=== PATIENT | male | born 1975 | race Caucasian/White ===

== ENCOUNTER 2023-07-11 19:45 | Inpatient (IN) | payer OTHER, SELFPAY ==
[2023-07-11 17:30] VITALS: BP 167/107
--- NOTE | 2023-07-11 17:35 | EDRN ---
Pt will not answer triage questions or past medical history, pt will not sit still on stretcher.
[2023-07-11] MEDS: SUBLIMAZE 50 MCG IV (17:42)
--- NOTE | 2023-07-11 18:03 | ED.GENMED ---
History of Present Illness
General
Chief Complaint: Headache
Source: patient and ambulance crew
Exam Limitations: clinical condition
Time Seen by Provider: 07/11/23 17:28
Travel History
Have you had any contact with someone who has COVID-19?: No
Do you have any symptoms of coronavirus? Fever > 100 degrees, chills, cough, shortness of breath, sore throat, loss of taste or smell, muscle aches, or headache?: No
History of Present Illness
History of Present Illness:
47-year-old male started with mild diffuse headache this morning. Took some Advil for discomfort. Headache became suddenly much worse late this afternoon. To the point of calling medics for evaluation. Medics stated patient was alert but very
agitated. No history of headaches. No trauma. No fever photophobia or other complaints. No neurologic issues noted by the medics.
Past History
Past History
ED Past Medical History: None
Review of Systems
Review of Systems
All Other Systems: Not applicable
Constitutional: Denies fever or chills
Skin: Denies rash
Neurological: Denies dizzy, weakness or numbness
Phy Exam
Physical Exam
Physical Exam:
GENERAL: Agitated. Moaning at times complaining of diffuse headache. However cannot redirect and is fully alert oriented and answering questions.
EYE: Orbits normal.
NECK: Supple, no significant adenopathy. Nontender
ENT: Pharynx without erythema
CARDIAC: Regular rate and rhythm without any obvious murmurs.
LUNGS: Clear breath sounds,normal
ABDOMEN: Soft, without focal tenderness or distention
NEUROLOGICAL: Alert and oriented , grossly non-focal
SKIN: Warm, mildly diaphoretic. No petechia or purpura
MUSCULOSKELETAL: No edema,no deformity.Good color
PSYCH: Normal and appropriate interaction.
Course
Orders/Labs/Results
Orders:
Orders
07/11/23 17:28
CT Head W/o Iv Contrast Urgent
Comment:
Reason For Exam: severe loving
Cardiac Monitoring- Treatment ONCE
IV Insert/Care/Rem.- Treatment PRN
Pulse Ox/cont/shift [RESP] Stat
Quantity: 1
07/11/23 17:29
Electrocardiogram (*1) Stat
Reason for Study: Other
Other Reason for Exam: neuro symptoms
EKG- Treatment ONCE
07/11/23 17:41
CT Head & Neck Angio W/wo IV Urgent
Comment:
Reason For Exam: severe loving
Fentanyl Citrate/Pf [Sublimaze] 100 mcg .ROUTE .STK-MED ONE
07/11/23 17:42
Fentanyl Citrate/Pf [Sublimaze] 50 mcg IV NOW STA
07/11/23 17:59
Complete Blood Count/With Diff Urgent
Comprehensive Metabolic Panel Urgent
PTT Urgent
Prothrombin Time Urgent
TSH Reflex To Free T4 Urgent
Comment: ADD ON
07/11/23 18:03
Acetaminophen 1000MG/100Ml [Ofirmev] 1,000 mg in 100 ml IV ONCE
Acetaminophen IV Indication:: ED Narcotic Naive Pt-ONCE
07/11/23 18:04
Diphenhydramine [Benadryl] 25 mg IV NOW STA
Prochlorperazine [Compazine] 10 mg IV NOW STA
07/11/23 18:06
Diphenhydramine [Benadryl] 50 mg .ROUTE .STK-MED ONE
Prochlorperazine [Compazine] 10 mg .ROUTE .STK-MED ONE
07/11/23 18:07
Diphenhydramine [Benadryl] 25 mg IV NOW STA
07/11/23 18:08
Prochlorperazine [Compazine] 10 mg IV NOW STA
07/11/23 18:24
COVID-19 Antigen Urgent
Source: Nasal Swab
Influenza A+B Rapid Molecular Urgent
ALOK Source: Nasal Swab
Specimen Description:
07/11/23 18:28
Add On- LAB Urgent
Tests Added?: tsh reflex t4
Ketorolac [Toradol] 15 mg IV NOW STA
07/11/23 19:01
Add On- LAB Urgent
Tests Added?: procalcitonin
07/11/23 19:02
NEUROLOGY CONSULT Routine
Consulting Provider: Manan Nj
Was physician already notified: Yes
Reason for consult: headache leukocytosis
07/11/23 19:04
Admit/Transfer Patient As Directed
Co-Sign Provider:
Level of Care: Inpatient admission
Assign to:: Medical/Surgical
Physician / Group: richard falcon
Diagnosis: intracatable headache , leukocytosis
Reason for Hospitalization: intracatable headache , leukocytosis
Expected length of stay greater than two midnights?: Yes
ELOS- Estimated Length of Stay in days: 3
I certify the patient meets the requirements for IP care: Yes
Code Status As Directed
Resuscitation Status: Full Code
07/11/23 19:07
CefTRIAXone [Rocephin] 2,000 mg IV NOW STA
07/11/23 19:10
Add On- LAB Urgent
Tests Added?: procalcitonin
07/11/23 19:55
Urine Drug Abuse Screen Routine
Date Specimen was Collected: 07/11/23
Time Specimen was Collected: 19:35
Blood Culture Q30M
ALOK Source: Blood/Venous
Specimen Description:
07/11/23 20:00
CefTRIAXone [Rocephin] 1,000 mg IV Q24H
Sterile Water [Sterile Water For Injection] 10 ml IV Q24H
07/11/23 20:05
Blood Culture Q30M
ALOK Source: Blood/Venous
Specimen Description:
Abnormal Lab Results
07/11/23
17:59
WBC 21.3 H 10^3/uL
(4.8-10.8)
MCH 31.9 H pg
(27.0-31.0)
Abs Immat Gran (auto) 0.1 H 10^3/uL
(0-0.05)
Absolute Neuts (auto) 18.7 H 10^3/uL
(1.4-6.5)
Absolute Lymphs (auto) 0.8 L 10^3/uL
(1.2-3.4)
Absolute Monos (auto) 1.5 H 10^3/uL
(0.1-0.6)
Immature Gran % 0.7 H %
(0-0.5)
Neutrophils % 87.9 H %
(42.2-75.2)
Lymphocytes % 3.6 L %
(20.5-51.1)
Sodium 130 L mmol/L
(135-145)
Carbon Dioxide 21 L mmol/L
(22-30)
Glucose 135 H mg/dl
(70-99)
ALT 70 H U/L
(0-50)
07/11/23 17:59
07/11/23 17:59
Vital Signs
Initial and Last Documented VS:
Initial Vital Signs
Temp Pulse Resp BP Pulse Ox
98.9 F 115 30 167/107 96
07/11/23 17:30 07/11/23 17:30 07/11/23 17:30 07/11/23 17:30 07/11/23 17:30
Last Documented Vital Signs
Temp Pulse Resp BP Pulse Ox
98.0 F 105 24 131/94 94
07/11/23 20:13 07/11/23 19:00 07/11/23 19:15 07/11/23 19:00 07/11/23 18:21
*Radiology
Radiology exam reviewed: radiology read reviewed (CT head and CT angiography negative)
*Pulse Oximetry
Patient hypoxic: no
*EKG
Interpreted by ED Provider?: Yes
Interpretation: abnormal
Comparison EKG: no comparison EKG present
Heart Rate: 102
Rate: tachycardiac
Rhythm: sinus
Norris: normal axis
Interval: normal interval
QRS Pattern: normal QRS
Ischemia: non-specific ST changes
*Insole Stiffener Interpretation
Rate: normal
Interpretation: normal
Heart Rate: 99
Rhythm: sinus
*Critical Care Note
Total Time (30-74mins, 75-104mins- exclusive of procedures): 45
Update Note
Update Note:
I was in CAT scan for the initial CT which looks negative to me. I called radiology. They confirm no acute bleed. CT angiography was ordered immediately. Awaiting for this reading. Patient continues to be agitated moaning complaining of pain
but when redirected will answer questions appropriately.
1820... Patient being rechecked multiple times. Still complaining of severe headache although he does appear slightly more comfortable. Mildly clammy. Neck is supple. Patient still moaning at times but will answer questions fully and
appropriately. High white count but likely reactive. Awaiting CT angiography.
1900.... Patient appears more comfortable but still complaining of severe headache. Neck is supple. Only other test to contemplate this evening would be a lumbar puncture. Because of patient's adipose tissue and size it would be very difficult
blind LP. Discussed with hospitalist and with neurology. Procalcitonin ordered. Will cover with Rocephin Vanco and acyclovir. To consider LP in the morning if still indicated. At this time, clinically have a relatively low suspicion given
supple neck and fully awake alert and oriented when redirected. However cannot ignore 21,000 white count with severe headache
ED Attending Note
-
Portions of this chart may have been created with voice recognition software.� Occasional wrong word or��sound alike� substitutions may have occurred due to the inherent limitations of voice recognition software.
Discharge Plan
Departure
Patient Disposition: Admit
Date of Disposition: 07/11/23
Time of Disposition: 19:12
Presentation/result/management discussed w/ accepting MD/DO: Hospitalist
Discharge Problem:
Acute severe headache
Interventions
Interventions:
*Risk Screen - Suicide Last Done: 07/11/23 18:19
*General Assessment Last Done: 07/11/23 18:19
*Neglect/Abuse Screening Last Done: 07/11/23 18:19
ED- Fall Risk Assessment Last Done: 07/11/23 18:21
*ED COVID-19 Vaccine History Last Done: 07/11/23 18:19
*Nursing Disposition Last Done: 07/11/23 20:41
ED- Neurological Assessment Last Done: 07/11/23 18:21
Discharge Date and Time
Discharge Date/Time: 07/11/23 20:42
--- NOTE | 2023-07-11 18:06 | EDRN ---
Pt will not sit still for EKG. Dr. Luong aware.
[2023-07-11 18:07] LABS: % Basophils 0.3 % (0-2); % Eosinophils 0.3 % (0-6); % Immature Granulocytes 0.7 % (0-0.5); % Lymphocytes 3.6 % (20.5-51.1); % Monocytes 7.2 % (1.7-9.3); % Neutrophils 87.9 % (42.2-75.2); Absolute Basophils 0.1 10^3/uL (0-0.2); Absolute Eosinophils 0.1 10^3/uL (0-0.7); Absolute Immature Granulocytes 0.1 10^3/uL (0-0.05); Absolute Lymphocytes 0.8 10^3/uL (1.2-3.4); Absolute Monocytes 1.5 10^3/uL (0.1-0.6); Absolute Neutrophils 18.7 10^3/uL (1.4-6.5); Hematocrit 43.3 % (39.0-52.0); Hemoglobin 15.5 g/dL (13.0-18.0); Mean Corp Hgb Conc. 35.8 g/dL (33.0-37.0); Mean Corpuscular Hgb 31.9 pg (27.0-31.0); Mean Corpuscular Volume 89.1 fL (80.0-94.0); Mean Platelet Volume 8.7 fL (7.4-10.4); Nucleated Red Blood Cells % 0 % (-); Platelet Count 264 10^3/uL (130-400); Red Blood Cell Count 4.86 10^6/uL (4.70-6.10); Red Cell Dist. Width 14.1 % (11.5-14.5); White Blood Cell Count 21.3 10^3/uL (4.8-10.8)
[2023-07-11] MEDS: BENADRYL 25 MG IV ×2 (18:07→22:45)
--- NOTE | 2023-07-11 18:10 | EDRN ---
Pt stating his name is Prieto MONI Hurtado 1975 on arrival to hospital and when asked him name and . Upon further evaluation of insurance cards and license, pts name is Elias MONI Hurtado still 1975. Registration notified.
[2023-07-11] MEDS: COMPAZINE 10 MG IV (18:11)
[2023-07-11] MEDS: OFIRMEV 100 IV (18:15)
--- NOTE | 2023-07-11 18:15 | EDRN ---
Pt continues to try and get OOB, pt was informed he cannot get OOB due to all the medications he has been given for safety. This RN left room and pt climbed over stretcher side rails. Pt was informed again he cannot get OOB and must use the urinal
with assistance on side of stretcher.
[2023-07-11 18:17] LABS: INR 1.13; PT 14.3 Sec (11.4-14.6)
[2023-07-11 18:18] VITALS: BMI 40.7
[2023-07-11 18:18] LABS: APTT 24.6 Sec (23.4-35.0)
[2023-07-11 18:19] LABS: Blood Urea Nitrogen 12 mg/dl (9-20); Estimated Creatinine Clearance > 125 ml/min; Glucose 135 mg/dl (70-99)
[2023-07-11 18:20] LABS: ALT (SGPT) 70 U/L (0-50); AST (SGOT) 44 U/L (17-59); Albumin 4.1 g/dl (3.5-5.0); Alkaline Phosphatase 60 U/L (38-126); Calcium 9.3 mg/dl (8.4-10.2); Carbon Dioxide 21 mmol/L (22-30); Chloride 100 mmol/L (98-107); Potassium 3.8 mmol/L (3.5-5.1); Sodium 130 mmol/L (135-145); Total Protein 7.2 g/dl (6.3-8.2); eGFR > 60.00
[2023-07-11 18:27] VITALS: BP 104/90
[2023-07-11] MEDS: TORADOL 15 MG IV (18:33)
--- NOTE | 2023-07-11 18:50 | EDRN ---
Pt attempting to climb OOB again, pt understands use of call kessler but states 'I don't want to use it'. Pt assisted to edge of stretcher to use urinal. Pt placed back on stretcher. Call kessler in reach, curtain open so RN can see pt for safety.
[2023-07-11 18:52] LABS: COVID-19 Antigen Negative (Negative)
[2023-07-11 19:00] VITALS: BP 131/94
[2023-07-11 19:14] LABS: TSH Reflex To Free T4 4.16 uIU/ml (0.47-4.68)
--- NOTE | 2023-07-11 19:14 | HPS.HSE ---
Addendum entered and electronically signed by Aly Gallagher MD 07/11/23 23:57:
NEG UDS
07/11/23
19:55
Procalcitonin 1.88 H
-cont IVS Acyclovir, Vancomycin and CFTZ
Addendum entered and electronically signed by Aly Gallagher MD 07/11/23 19:23:
NEG Covid
NEG Flu A & B
Original Note:
Family Physician
-
Family Physician:
Chief Complaint
-
ZABALA
History of Present Illness
47M pw abrupt onset of severe ZABALA associated with vomiting twice, afebrile. No prior HX migraine. Received IV Fentanyl 100 by EMS but not relief. He is still writhing with pain at ER. SAdditinal Fentanyl 50 mcg by ER. Additinally IV Toradol 15 mg,
Compazine and IV 25 mg of Benadryl. [place] nauseous
Medical History
Past Medical History
Past Medical History: Reports None
Past Surgical History: Reports Other
Social History
Tobacco: Non-smoker
Alcohol: None
Family History
Family History: Not pertinent
Allergies / Home Medications
Allergies reflects when Allergies were last updated in [employer].
Home Medications with original date entered in [employer]
Allergy/Medication List:
Allergies
Allergy/AdvReac Type Severity Reaction Status Date / Time
Sulfa (Sulfonamide Allergy Unknown Verified 07/11/23 17:40
Antibiotics)
If medication reconciliation has not been performed, why?: Other (not on any meds )
Review of Systems
-
Constitutional: Denies Fever
EENT: Reports No Symptoms
Respiratory: Reports No Symptoms
Cardiac: Reports No Symptoms
Abdomen/GI: Reports No Symptoms
: Reports No Symptoms
Musculoskeletal: Reports No Symptoms
Skin: Reports No Symptoms
Neurological: Reports See HPI
Endocrine: Reports No Symptoms
Hematologic/Lymphatic: Reports No Symptoms
Psych: Reports No Symptoms
Physical Exam
Vital Signs
Vital Signs
Temp Pulse Resp BP Pulse Ox
98.9 F 109 23 104/90 94
07/11/23 17:30 07/11/23 18:49 07/11/23 18:49 07/11/23 18:27 07/11/23 18:21
Physical Exam
General: Other (see below )
Laboratory Results
-
07/11/23 17:59
07/11/23 17:59
Laboratory Results
PT 14.3 Sec (11.4-14.6) 07/11/23 17:59
INR 1.13 07/11/23 17:59
APTT 24.6 Sec (23.4-35.0) 07/11/23 17:59
Total Bilirubin 1.0 mg/dl (0.2-1.3) 07/11/23 17:59
AST 44 U/L (17-59) 07/11/23 17:59
ALT 70 U/L (0-50) H 07/11/23 17:59
Alkaline Phosphatase 60 U/L (38-126) 07/11/23 17:59
Data Reviewed
-
CT Scan: Report Reviewed by me
Lab Data: Labs Reviewed by me
Impression/Plan
-
Reviewed VS: afebrile BP 165/105--> 1055/[address] ST 100s
BMI 40 class III - morbid obesity
PE
Gen: Class III obesity
HEENT: anicteric
Neck: supple no meningism
Lungs: symmetric AE
Cor: RRR S1 S21
Abdomen: Morbidly obese abdomen
DISCHARGE RN: Alert, non focal
MS: not edematous
Psych: seems more comfortable , looking at his cell phone
Data
WCC 21s
nl Hgb
Na 130
CO2 21
BG 135
ALT 70
Pending TSH
HCT: No evidence of acute intracranial abnormality.
H & N CTA
- Mild noncalcified plaque involving the proximal left ICA, which results in approximately 25% diameter reduction.
- Normal CT angiographic appearance of the anterior cerebral and middle cerebral arteries bilaterally.
-Tortuosity of the superior vertebral arteries bilaterally with no significant narrowing. Tortuosity of the proximal basilar artery with no significant narrowing.
-There is no CT angiographic evidence for arterial dissection.
-Enlarged left lobe of the thyroid gland, asymmetric compared to the right. If not previously evaluated, further evaluation with thyroid ultrasound is recommended.
-There is no CT angiographic evidence for intracranial aneurysm.
-Percent stenosis is calculated using NASCET criteria.
No prior hospitalist admission:
ASSESSMENT & PLAN
Abrupt onset of severe ZABALA
+ Nausea and Vomiting twice
+ Leucocytosis - infective vs leukemoid reaction to stress
NEG HCT, NEG CTA H & N
DDX; Viral encephalitis, aseptic meninigitis, atypical migraine
- ER attd discussed case with Neuro
- check UDS
- BCx sent
- Empiric IV acyclovir, DISCHARGE RN dose IV CFTX , IV vancomycin
- IV Toradol 30 q6h PRN + PRN IV Benadryl + IV Compazine PRN
- Trend WCC
- IR consult in AM for IR LP
- Neuro consult
DVT Px: SCD
Code: Full
Obs MS
[2023-07-11] MEDS: ROCEPHIN 2000 MG IV (20:05)
[2023-07-11 20:31] LABS: Amphetamines Negative (Negative); Barbiturates Negative (Negative); Benzodiazepines Negative (Negative); Buprenorphine Negative (Negative); Cocaine Negative (Negative); Marijuana Negative (Negative); Methadone Negative (Negative); Methamphetamines Negative (Negative); Opiates Negative (Negative); Phencyclidine Negative (Negative); Tricyclic Antidepressants Negative (Negative)
[2023-07-11 20:46] LABS: Procalcitonin 1.88 ng/ml (0.0-0.25)
[2023-07-11 20:51] VITALS: BP 139/85; BMI 43.7
[2023-07-11] MEDS: ZOVIRAX INJECTION 276 MG IV (21:07)
--- NOTE | 2023-07-11 21:31 | PTCARENOTE ---
Rec'd pt from the ER. Walked from stretcher to bed with standby assist. Assessment as charted. Pt does fall asleep between admission questions. IV antibiotics started as ordered. call kessler in reach.
[2023-07-11] MEDS: TORADOL 30 MG IV (22:43)
[2023-07-11] MEDS: VANCOCIN 540 MG IV (22:45)
[2023-07-11] MEDS: COMPAZINE 5 MG IV (22:45)
[2023-07-12] VITALS (9 sets, daily range): BP systolic 90–165; BP diastolic 56–95; PULSE 73–77; O2SAT 97
[2023-07-12] MEDS: BENADRYL 25 MG IV ×2 (04:35→10:58)
[2023-07-12] MEDS: COMPAZINE 5 MG IV ×2 (04:55→10:59)
[2023-07-12] MEDS: TORADOL 30 MG IV ×3 (05:17→21:10)
--- NOTE | 2023-07-12 08:12 | PHA.VAN.IN ---
Assessment
- Assessment
Renal Function: Appears similar to baseline
Concomitant Antimicrobials: Ceftriaxone, chronic acyclovir
AUC Dosing Plan
- Dosing Variables
Dosing Weight (kg): 146
Dosing CrCl (ml/min): 125
Vd coefficient (L/kg): 0.6
- Empiric Dosing
Initial / Loading Dose: 2000mg - 07/11 22:45
Maintenance Regimen: Vanc 1250mg Q8H starting at 1400
Estimated AUC (mcg*h/mL): 428
Estimated Peak (mcg*h/mL): 24.6
Estimated Trough (mcg/ml): 12.2
Estimated Half Life (H): 6.4
- Monitoring
No levels ordered at this time: consider levels in next few days
Pharmacokinetics Vancomycin I
- -
Patient Age: 47
Patient Sex: Male
Vancomycin Day #: 1
Indication: Bacteremia
Requesting Provider: Dr. Link
Pertinent Antimicrobial Allergies:
sulfonamide antibiotics - unknown
Height / Weight:
Height 6 ft
Actual Weight 146.057 kg
Pertinent Past Medical History: BMI ~44
- Vital Signs / Lab Results
Temp Pulse Resp BP Pulse Ox
97.5 F 83 18 121/56 98
07/12/23 00:25 07/12/23 00:25 07/12/23 00:25 07/12/23 00:25 07/12/23 00:25
Lab Results - Hematology
07/11/23
17:59
WBC 21.3 H
Lab Results - Chemistry
07/11/23
17:59
BUN 12
Creatinine 0.8
Estimated Creat Clear > 125
Albumin 4.1
Microbiology Results
07/11/23 19:55 Blood Culture - Preliminary
Blood/Venous Positive culture in progress
Gram Stain - Preliminary
02/19/24 20:05 Blood Culture - Preliminary
Blood/Venous Positive culture in progress
Gram Stain - Preliminary
07/11/23 18:24 Influenza Types A & B (POOL) - Final
Nasal Swab Negative for Influenza A & B, NAAT
Negative results must be combined with clinical observations
and patient history.
Nucleic Acid Amplification test (NAAT)performed on the
[employer] platform.
[2023-07-12 08:45] LABS: HDL Cholesterol 53 mg/dl; LDL Cholesterol, Calculated 91 mg/dl; Total Cholesterol 155 mg/dl (50-199); Triglyceride 58 mg/dl (10-149); Very Low Density Lipoprotein 11 mg/dl (0-30)
--- NOTE | 2023-07-12 09:00 | CON.NEURO4 ---
Addendum entered and electronically signed by Jose De Jesus Hurtado MD 07/12/23 16:10:
Studies reviewed.
I have personally examined the patient. I reviewed and agree with the [employer] ARCHITECT's Note.
My addenda:
Photophobic.
Awake, alert, interactive. No acute distress.
Speech intact.
Follows 2-step requests w/o difficulty. No tremor.
Extra-ocular movements grossly intact.
Facial movements full and symmetric. Hearing intact to normal conversational volume.
Normal UE movements bilaterally.
Neck: full ROM.
Chest: no dyspnea
Heart: no JVD
Ext: (-) Clubbing, (-) Cyanosis, (-) Edema
IMPRESSIONS/RECOMMENDATIONS:
Abrupt onset of severe headache, elevated white blood cell count, and photophobia with phonophobia.
Differential diagnosis includes meningitis or encephalopathy secondary to toxic metabolic factors including septicemia
Would perform lumbar puncture to ensure that meningeal infection is not taking place
Provide rizatriptan for headache control
Check blood work for potential metabolic abnormalities
DVT prophylaxis
Continue antibiotics
Will continue to follow patient.
Original Note:
Consultation - Neurology 4
-
CONSULTING PHYSICIAN: Jose De Jesus Hurtado MD
REFERRING PHYSICIAN: Hospitalists/MYRNA Álvarez
DICTATED BY: MYRNA Bee
DATE/TIME OF REQUEST: 07/11/23
DATE/TIME OF CONSULTATION: 07/12/23
Reason for Consultation: Headache, leukocytosis
History of Present Illness:
This is a 47-year-old right-handed male who has presented to the hospital on 07/21/23 with report of headache. Patient reports developing a headache yesterday (07/11/23) morning that progressively worsened as the day went on despite taking Advil,
prompting him to come to the ER for evaluation. CT head and CTA head/neck were obtained on arrival and are negative for any acute abnormalities. WBC count is elevated at 21.3 and prelim blood cultures are positive. He rates his pain an 8/10 and
describes it as a whole head sharp hammer sensation. His headache is associated with photo/phonophobia but he denies any nausea/vomiting. He reports mild neck/back aching which he attributes to laying in bed. He denies any dizziness, vision changes,
speech/swallow difficulty, numbness, weakness, chest pain, palpitations, and shortness of breath. He denies any recent cold symptoms or fevers and he has not had any sick contacts. He reports having about one mild headache per week at baseline. His
previous headaches have never been associated with photo/phonophobia, nausea, or vomiting and he has never had a headache as severe as this one.
Past Medical History: Hypothyroidism, thyroid nodule, ANA CRISTINA (cpap), NIDDM, fatty liver, ADHD, anxiety, obesity
Surgical History: Cholecystectomy, T&A, arthroscopy L shoulder and R&L knee, R and L 5th toe hammer toe repair, sinus surgery
Family History: Reviewed and noncontributory.
Social History: Former smoker. Former alcohol. Denies illicit drug use.
Allergies: Sulfa.
Home Medications: See below.
Review of Symptoms:
Patient denies any fever, chest pain, shortness of breath, GI or symptoms.
�Per the HPI.�All systems are reviewed negative except above.
Physical Exam:
The patient is afebrile, abdomen is nondistended, breathing is unlabored, skin is warm and dry, no edema.
Neurologic Examination:
The patient is awake, alert and oriented x 3. He is able to follow commands and answer questions appropriately. There is no aphasia or dysarthria. On cranial nerve assessment, pupils are 3 mm bilateral, round and reactive to light and
accommodation. Visual gutierrez are full. Extraocular movements are intact. +Nystagmus with left gaze. Facial sensations are intact and bilaterally symmetrical, there is no facial asymmetry. Hearing is intact bilaterally to normal conversation volume.
Tongue palate and uvula are midline. Sternocleidomastoid strengths are full bilaterally. No nuchal rigidity noted. Motor strengths are 5/5 bilateral upper and lower extremities on medical research Mcgrath scale. There is no drift or involuntary
movement noted. Deep tendon reflexes are 2+ bilateral upper and lower extremities and Babinski is absent bilaterally. Sensations of pain, touch, temperature and vibration are intact and bilaterally symmetrical. There was no extinction noted on
double simultaneous stimulation. Coordination is intact by finger to nose bilaterally.
Lab Results: See below.
Neuro Imaging:
1. CT Head 07/11/23: No evidence of acute intracranial abnormality.
2. CTA head/neck 07/11/23: Mild noncalcified plaque involving the proximal left ICA, which results in approximately 25% diameter reduction. Normal CT angiographic appearance of the anterior cerebral and middle cerebral arteries bilaterally.
Tortuosity of the superior vertebral arteries bilaterally with no significant narrowing. Tortuosity of the proximal basilar artery with no significant narrowing. There is no CT angiographic evidence for arterial dissection. Enlarged left lobe of the
thyroid gland, asymmetric compared to the right. If not previously evaluated, further evaluation with thyroid ultrasound is recommended. There is no CT angiographic evidence for intracranial aneurysm.
Differentials for the patient's presentation include:
1. Intractable headache with concern for meningitis given leukocytosis, nystagmus, and photophobia.
Patient has the following risk factors for their symptoms: Leukocytosis, headache
Recommendations:
-Provide rizatriptan 100mg PO now, may repeat x1 in one hour if no improvement in headache.
-Continue antibiotics/antiviral medications per hospitalists/ID.
-Lumbar puncture ordered/pending.
-DVT prophylaxis.
Discussed patient care with: Dr. Hurtado, the patient
Vital Signs and Labs
-
Vital Signs and Labs:
Vital Signs
Temp Pulse Resp BP Pulse Ox
97.8 F 73 18 146/94 96
07/12/23 08:34 07/12/23 08:34 07/12/23 08:34 07/12/23 08:34 07/12/23 08:34
Lab Results
07/11/23 17:59
07/12/23 08:50
PT 14.3 Sec (11.4-14.6) 07/11/23 17:59
INR 1.13 07/11/23 17:59
APTT 24.6 Sec (23.4-35.0) 07/11/23 17:59
Sodium Cancelled 07/12/23 08:50
Potassium Cancelled 07/12/23 08:50
BUN Cancelled 07/12/23 08:50
Glucose Cancelled 07/12/23 08:50
Calcium Cancelled 07/12/23 08:50
LDL Cholesterol, Calc 91 mg/dl 07/12/23 07:08
Ur Buprenorphine Negative (Negative) 07/11/23 19:55
Medications
-
Active Medications
Generic Name Dose Route Start Last Admin
Trade Name Freq PRN Reason Stop Dose Admin
Acyclovir Sodium 800 mg 07/12/23 08:00 07/12/23 10:34
Acyclovir Sodium 800 Mg Tablet PO 07/22/23 07:59 800 mg
BID SUSAN Administration
Ceftriaxone Sodium 2,000 mg 07/12/23 12:30
Ceftriaxone 2,000 Mg/20 Ml Vial IV
Q12@0000,1200 SUSAN
Diphenhydramine HCl 25 mg 07/11/23 20:49 07/12/23 10:58
Diphenhydramine 50 Mg/Ml 1 Ml Vial IV 08/08/23 20:48 25 mg
Q4HPRN PRN Administration
headache
Vancomycin HCl 1,250 mg/ 275 mls @ 183.33 mls/hr 07/12/23 14:00
Sodium Chloride IV
Q8H SUSAN
Protocol
Ketorolac Tromethamine 30 mg 07/11/23 20:49 07/12/23 11:00
Ketorolac 30 Mg/Ml Injection IV 07/16/23 20:48 30 mg
Q6HPRN PRN Administration
headache
Prochlorperazine Edisylate 5 mg 07/11/23 20:49 07/12/23 10:59
Prochlorperazine 10 Mg/2 Ml Vial IV 08/08/23 20:48 5 mg
Q6HPRN PRN Administration
headache
Sodium Chloride 0 flush 07/11/23 21:00 07/12/23 11:01
Sodium Chloride 0.9% (Flush) Syringe IV 08/08/23 20:59 1 flush
PER PROTOCOL SSUAN Administration
Sterile Water 20 ml 07/12/23 12:30
Sterile Water For Injection 20 Ml Vial IV 08/09/23 12:29
Q12@0000,1200 SUSAN
Home Medications
Medication Instructions Recorded
ibuprofen 200 mg tablet (Advil) 400 mg PO QIDPRN PRN mild pain 07/11/23
--- NOTE | 2023-07-12 09:03 | W.PN.HOSP.TC ---
Today's Communication/Plan
-
Continue antibiotics
Await LP
ID consult
Neurology consult
Assessment / Plan
Assessment / Plan
Gen-AAOx3, mild distress due to headache, morbid obesity
HEENT-NC, AT, anicteric, clear oral mm
Neck-supple
CV-reg, no M, +S1/S2
Lungs-clear B/L
Abd-soft, NT, ND
Ext-no edema
Musculoskeletal-no cyanosis, clubbing
Skin-warm and dry
Neuro-grossly non-focal
Psych-calm, cooperative
Sepsis - source unclear. Blood cultures are noted to be positive for gram-positive cocci in chains. Continue empiric antibiotics. Consult ID.
Intractable headache -symptoms are migrainous in nature. Rule out meningitis. Awaiting LP by IR. Neurology consulted. CT head and CTA head and neck relatively unremarkable.
Hyponatremia -(POA) awaiting repeat labs. TSH normal.
Obstructive sleep apnea -on CPAP at bedtime.
Morbid obesity due to excess calories
Full code
Anticipated Discharge: > 48 hours
Subjective/Interval History
-
Date of Service: July 12, 2023
Patient seen and examined. Complaining of 8 out of 10 headache, frontally. Very mild nausea. Has photophobia.
Objective Data
-
Labs:
Laboratory Results
07/12/23
08:50
Sodium Pending
Potassium Pending
Chloride Pending
Carbon Dioxide Pending
BUN Pending
Creatinine Pending
Glucose Pending
Calcium Pending
Total Bilirubin Pending
AST Pending
ALT Pending
Alkaline Phosphatase Pending
Vital Signs:
Vital Signs
Temp Pulse Resp BP Pulse Ox
97.8 F 73 18 146/94 96
07/12/23 08:34 07/12/23 08:34 07/12/23 08:34 07/12/23 08:34 07/12/23 08:34
I&O
07/11/23 07/12/23 07/13/23
06:59 06:59 06:59
Intake Total 2710 / 2710
Balance 2710 / 2710
Review of Systems
-
History Source: Patient
All other systems: Reviewed and negative
[2023-07-12 09:43] LABS: ALT (SGPT) 55 U/L (0-50); AST (SGOT) 27 U/L (17-59); Albumin 3.5 g/dl (3.5-5.0); Alkaline Phosphatase 63 U/L (38-126); Blood Urea Nitrogen 13 mg/dl (9-20); Calcium 9.3 mg/dl (8.4-10.2); Carbon Dioxide 21 mmol/L (22-30); Chloride 99 mmol/L (98-107); Estimated Creatinine Clearance > 125 ml/min; Glucose 120 mg/dl (70-99); Sodium 130 mmol/L (135-145); Total Protein 6.4 g/dl (6.3-8.2); eGFR > 60.00
[2023-07-12] MEDS: MAXALT MLT (ORALLY DISINTEGRATING) 10 MG PO (10:34)
[2023-07-12] MEDS: ZOVIRAX 800 MG PO (10:34)
[2023-07-12] MEDS: FLUSH (NSS) 1 FLUSH IV ×2 (11:01→13:34)
[2023-07-12] MEDS: ROCEPHIN 2000 MG IV ×2 (13:29→23:51)
[2023-07-12] MEDS: STERILE WATER FOR INJECTION 20 ML IV ×2 (13:30→23:51)
[2023-07-12] MEDS: VANCOCIN 275 MG IV ×2 (13:33→21:06)
--- NOTE | 2023-07-12 14:43 | CON.ID ---
Consultation
-
Date/Time Consultation Requested: 07/12/23 8:07
Date/Time Consultation Performed: 07/12/23 14:50
Requesting Provider: Dr Link
Performing Provider: Dr Torres
Reason for Consultation: strep pneumo bacteremia
Chief Complaint / Past History
Chief Complaint
headache
History of Present Illness
Mr Hurtado is a 47 year old male with medical history notable for class III obesity who presented here yesterday for abrupt onset of severe headache with vomiting. No fevers. EMS was called due to severity of the headache. Also with photophobia and
stiff neck. No recent respiratory infections or sore throat. Had his childhood vaccines. No cough or sputum production.
Reports 6 lifetime sexual partners all women.
Since arrival here he has been afebrile, bp stable, saturating well on room air,wbc 21, hgb 15.5, plt 264, L shift is noted, minimal eos on differential, cr 0.7, t bili 1.0, ast 27, alt 55, alk phos 63, procal 1.8, one of two blood cultures with s
pneumoniae, repeat blood cultures x2 in progress, patient on ceftriaxone, clinical pharmacy contacted me and recommended higher dose of ceftriaxone and I agreed, that has been adjusted, ID is consulted for assistance with management.
Past History
Past Medical History: None
Past Surgical History: None
Allergy History:
Sulfa (Sulfonamide Antibiotics) Allergy (Verified 07/11/23 17:40)
Unknown
Medications Reviewed: Yes
Social History
Tobacco: Non-Smoker
Alcohol: None
Drug: None
Family History
Family History: Not Pertinent
Review of Systems
Review of Systems
General: Negative Fever or Chills
All systems: All other systems were reviewed and were negative
Vital Signs
Temp Pulse Resp BP Pulse Ox
97.8 F 73 18 146/94 96
07/12/23 08:34 07/12/23 08:34 07/12/23 08:34 07/12/23 08:34 07/12/23 08:34
Physical Exam
Physical Exam
Constitutional: No Acute Distress
Cardiovascular: Regular Rate and S1/S2; Negative Murmur or Rub
Pulmonary: Clear and Symmetric; Negative Wheezes, Rales or Rhonchi
Gastrointestinal: Soft, Non Tender, Non Distended and Normal Bowel Sounds
Skin: Warm and Dry; Negative Rash or Jaundice
Lab / Diagnostic Study Results
07/11/23 17:59
07/12/23 08:50
Abs Immat Gran (auto) 0.1 10^3/uL (0-0.05) H 07/11/23 17:59
Absolute Neuts (auto) 18.7 10^3/uL (1.4-6.5) H 07/11/23 17:59
Absolute Lymphs (auto) 0.8 10^3/uL (1.2-3.4) L 07/11/23 17:59
Absolute Monos (auto) 1.5 10^3/uL (0.1-0.6) H 07/11/23 17:59
Absolute Basos (auto) 0.1 10^3/uL (0-0.2) 07/11/23 17:59
Immature Gran % 0.7 % (0-0.5) H 07/11/23 17:59
Neutrophils % 87.9 % (42.2-75.2) H 07/11/23 17:59
Lymphocytes % 3.6 % (20.5-51.1) L 07/11/23 17:59
Monocytes % 7.2 % (1.7-9.3) 07/11/23 17:59
Eosinophils % 0.3 % (0-6) 07/11/23 17:59
Basophils % 0.3 % (0-2) 07/11/23 17:59
PT 14.3 Sec (11.4-14.6) 07/11/23 17:59
INR 1.13 07/11/23 17:59
Procalcitonin 1.88 ng/ml (0.0-0.25) H 07/11/23 19:55
Microbiology Results
Micro:
07/11/23 19:55 Blood Culture - Preliminary
Blood/Venous Streptococcus pneumoniae
Gram Stain - Final
07/12/23 12:55 Blood Culture - Pending
Blood/Venous
07/12/23 12:30 Blood Culture - Pending
Blood/Venous
07/11/23 20:05 Blood Culture - Preliminary
Blood/Venous Positive culture in progress
Gram Stain - Final
07/11/23 18:24 Influenza Types A & B (POOL) - Final
Nasal Swab Negative for Influenza A & B, NAAT
Negative results must be combined with clinical observations
and patient history.
Nucleic Acid Amplification test (NAAT)performed on the
[employer] platform.
Assessment / Plan
Meningitis
Strep Pneumoniae Bacteremia
Leukocytosis
- CT head - no acute intracranial abnormality
- agree with LP when feasible, high index of suspicion
- CXR 2 views
- echo
- ceftriaxone dose increased to 2 gm IV q12
- continue vancomycin pending sensitivities on the strep pneumo
- dexamethasone 10 mg IV q6 hrs x4 days
- stopped acyclovir
- follow clinically
--- NOTE | 2023-07-12 16:14 | CM ---
Patient seen bedside.
IA completed.
Patient lives alone in a 1 story home, no steps.
Patient drives and works.
No home care, no skilled rehab.
Denied home care needs.
PCP: [facility] ([place])
Pharmacy: [facility]
Plan: no needs anticipated.
--- NOTE | 2023-07-12 17:56 | W.PN.UPDATE ---
Update Note
Progress Note Update
LP performed. CSF was cloudy. Opening pressure 49 cm water, closing pressure 34 cm water.
--- NOTE | 2023-07-12 18:07 | PTCARENOTE ---
Patient returned to 427 s/p LP in IR. Patient assisted to transfer into bed and flat bedrest maintained. Lower back with band-aid clean, dry and intact. Patient in bed with call kessler in reach and verbalizes understanding to ring for needs.
[2023-07-12] MEDS: DECADRON 10 MG IV ×2 (18:30→23:50)
[2023-07-12] MEDS: FLUSH (NSS) 2 FLUSH IV (18:31)
[2023-07-12 18:36] LABS: Spinal Fluid Glucose 42 mg/dl (40-70); Spinal Fluid Protein 222 mg/dl (12-60)
[2023-07-12 18:49] LABS: CSF Clarity Hazy; CSF Color Xanthochromic; CSF Tube # 1
[2023-07-12 18:51] LABS: Red Cell Count/CSF 232 mm^3; Spinal Fluid Granulocytes 74 %; Spinal Fluid Lymphocytes 18 %; Spinal Fluid Macrophages 8 %; White Cell Count/CSF 3931 mm^3 (0-5)
[2023-07-12 18:52] LABS: CSF Color Xanthochromic; CSF Granulocytes 75 %; CSF Lymphocytes 17 %; CSF Tube # 4; CSF Tube # Clarity Hazy; Red Cell Count/CSF 40 mm^3; Spinal Fluid Macrophages 8 %; White Blood Cell Count/CSF 3009 mm^3 (0-5)
--- NOTE | 2023-07-13 04:27 | DOWNTIME ---
There was a [email or web address] Client [employer] Downtime on 07/13/2023 from 0111 to 07/13/2023 at 0405. Downtime documentation of patient's care, including medication administrations, has been reconciled in the electronic record per guidelines. Refer to the
patient's paper chart under the miscellaneous tab to see printed paper medication records and downtime forms.
[2023-07-13] MEDS: DECADRON 10 MG IV ×4 (05:05→23:04)
[2023-07-13] MEDS: VANCOCIN 275 MG IV ×3 (05:05→21:15)
[2023-07-13] MEDS: TORADOL 30 MG IV ×3 (05:11→17:19)
[2023-07-13 07:20] VITALS: BP 172/88
[2023-07-13 08:00] VITALS: BP 156/95
[2023-07-13 08:00] LABS: % Basophils 0.2 % (0-2); % Immature Granulocytes 2.4 % (0-0.5); % Lymphocytes 5.4 % (20.5-51.1); % Monocytes 3.9 % (1.7-9.3); % Neutrophils 88.1 % (42.2-75.2); Absolute Immature Granulocytes 0.4 10^3/uL (0-0.05); Absolute Lymphocytes 0.9 10^3/uL (1.2-3.4); Absolute Monocytes 0.6 10^3/uL (0.1-0.6); Absolute Neutrophils 14.4 10^3/uL (1.4-6.5); Hematocrit 42.2 % (39.0-52.0); Hemoglobin 14.7 g/dL (13.0-18.0); Mean Corp Hgb Conc. 34.8 g/dL (33.0-37.0); Mean Corpuscular Hgb 30.8 pg (27.0-31.0); Mean Corpuscular Volume 88.3 fL (80.0-94.0); Mean Platelet Volume 9.5 fL (7.4-10.4); Nucleated Red Blood Cells % 0 % (-); Platelet Count 265 10^3/uL (130-400); Red Blood Cell Count 4.78 10^6/uL (4.70-6.10); White Blood Cell Count 16.3 10^3/uL (4.8-10.8)
--- NOTE | 2023-07-13 08:15 | W.PN.HOSP.TC ---
Today's Communication/Plan
-
Continue antibiotics
Continue steroids
Await labs
Assessment / Plan
Assessment / Plan
Gen-AAOx3, mild distress due to headache, morbid obesity
HEENT-NC, AT, anicteric, clear oral mm
Neck-supple
CV-reg, no M, +S1/S2
Lungs-clear B/L
Abd-soft, NT, ND
Ext-no edema
Musculoskeletal-no cyanosis, clubbing
Skin-warm and dry
Neuro-grossly non-focal
Psych-calm, cooperative
Sepsis -due to pneumococcal meningitis, pneumococcal bacteremia. Continue antibiotics. Blood cultures noted. Afebrile. Looks nontoxic. WBCs pending.
Pneumococcal meningitis -continue antibiotics, steroids. Headache improving. Recommend outpatient immunology follow-up given history of frequent ear infections as a child and now presentation with meningitis.
Hyponatremia -(POA) awaiting repeat labs. TSH normal.
Bilateral hearing loss -patient states he has had chronic hearing loss related to childhood ear infections. Had myringotomy tubes bilaterally. Will need outpatient audiometry evaluation.
Obstructive sleep apnea -on CPAP at bedtime.
Morbid obesity due to excess calories
Full code
Anticipated Discharge: > 48 hours
Subjective/Interval History
-
Date of Service: July 13, 2023
Patient seen and examined. Feeling better compared to yesterday. Currently has a 5 out of 10 headache. No nausea.
Objective Data
-
Labs:
Laboratory Results
07/13/23
07:01
WBC Pending
Hgb Pending
Hct Pending
Plt Count Pending
Sodium Pending
Potassium Pending
Chloride Pending
Carbon Dioxide Pending
BUN Pending
Creatinine Pending
Glucose Pending
Calcium Pending
Total Bilirubin Pending
AST Pending
ALT Pending
Alkaline Phosphatase Pending
Vital Signs:
Vital Signs
Temp Pulse Resp BP Pulse Ox
98.4 F 79 18 172/88 98
07/13/23 07:20 07/13/23 07:20 07/13/23 07:20 07/13/23 07:20 07/13/23 07:20
I&O
07/12/23 07/13/23 07/14/23
06:59 06:59 06:59
Intake Total 2710 / 2710 2290 / 2290
Balance 2710 / 2710 2290 / 2290
Review of Systems
-
History Source: Patient
All other systems: Reviewed and negative
[2023-07-13] MEDS: BENADRYL 25 MG IV ×3 (08:21→22:37)
[2023-07-13 09:04] LABS: ALT (SGPT) 47 U/L (0-50); AST (SGOT) 29 U/L (17-59); Albumin 3.8 g/dl (3.5-5.0); Alkaline Phosphatase 67 U/L (38-126); Blood Urea Nitrogen 15 mg/dl (9-20); Calcium 9.1 mg/dl (8.4-10.2); Carbon Dioxide 20 mmol/L (22-30); Chloride 99 mmol/L (98-107); Estimated Creatinine Clearance > 125 ml/min; Glucose 135 mg/dl (70-99); Sodium 132 mmol/L (135-145); Total Bilirubin 0.6 mg/dl (0.2-1.3); Total Protein 6.9 g/dl (6.3-8.2); eGFR > 60.00
--- NOTE | 2023-07-13 09:05 | W.PN.NEURO.1 ---
Today's Communication / Plan
-
Provide rizatriptan for headache control again today
DVT prophylaxis
Continue antibiotics and Dexamethasone as per infectious disease, appreciate their assistance
No indication at this time for antiseizure medication
Neuro Assessment/Plan
Assessment
Abrupt onset of severe headache, elevated white blood cell count, and photophobia with phonophobia.
Diagnosis is meningitis secondary to Streptococcus pneumoniae
Completed lumbar puncture
Plan
Provide rizatriptan for headache control again today
DVT prophylaxis
Continue antibiotics and Dexamethasone as per infectious disease, appreciate their assistance
No indication at this time for antiseizure medication
Will follow as needed
Subjective/Objective
Subjective Data
Date of Service: July 13, 2023
5/10 intensity of headache, persistent.
Objective Data
Vital Signs
Temp Pulse Resp BP Pulse Ox
36.9 C 79 18 172/88 98
07/13/23 07:20 07/13/23 07:20 07/13/23 07:20 07/13/23 07:20 07/13/23 07:20
Lab Results
07/13/23 07:01
07/13/23 07:01
PT 14.3 Sec (11.4-14.6) 07/11/23 17:59
INR 1.13 07/11/23 17:59
APTT 24.6 Sec (23.4-35.0) 07/11/23 17:59
Sodium 132 mmol/L (135-145) L 07/13/23 07:01
Potassium 4.0 mmol/L (3.5-5.1) 07/13/23 07:01
BUN 15 mg/dl (9-20) 07/13/23 07:01
Glucose 135 mg/dl (70-99) H 07/13/23 07:01
Calcium 9.1 mg/dl (8.4-10.2) 02/21/24 07:01
LDL Cholesterol, Calc 91 mg/dl 07/12/23 07:08
Ur Buprenorphine Negative (Negative) 07/11/23 19:55
Patient Allergies
Sulfa (Sulfonamide Antibiotics) Allergy (Verified 07/11/23 17:40)
Unknown
Review of Systems
-
History Source: Patient
All other systems: Reviewed and negative
EENT: Negative Decreased Vision or Swallowing Difficulty
Respiratory: Negative Trouble Breathing
Cardiac: Negative Chest Pain
Abdomen/GI: Negative Incontinence of Stool
Genitourinary: Negative Difficulty Voiding
Musculoskeletal: Back Pain; Negative Neck Pain
Neuro: Headache; Negative Dizzy
Physical Exam
-
General: No Apparent Distress and Appears Stated Age
Eyes: Round OU, [place] Conjunctivae and No Ptosis
HEENT: Anicteric and Moist Mucous Membranes
Neck: Full Range of Motion
Respiratory: No Dyspnea
Cardiac: No JVD
GI: Non-distended
Extremities: No Clubbing, No Cyanosis and No Edema
Psych: Intact Judgement/Insight
Extended Neurological Exam
Mood & Affect: Mood Unremarkable and Affect Unremarkable
Attention Span & Concentration: Awake, Alert, Interactive and No Difficulty with 2 Step Request
Memory: Unremarkable
Tremor: Hand Tremor Absent and Head Tremor Absent
Speech: Quality Unremarkable and Quantity Unremarkable
Cranial Nerve II: Left Eye: Pupillary Size Unremarkable and Visual Martinez Grossly Intact
Cranial Nerve II: Right Eye: Pupillary Size Unremarkable and Visual Martinez Grossly Intact
Cranial Nerves III, IV, : Extraocular Movement: Nystagmus with Extreme Gaze to Left and Nystagmus with Extreme Gaze to Right
Cranial Nerve VII: Facial Symmetry: Normal Facial Symmetry
Cranial Nerve VIII: Hearing: Unremarkable Hearing to Normal Conversational Volume
Cranial Nerve XI: Shoulder Shrug: Unremarkable
Muscle Strength, Overall: Spontaneously Moves (all ext)
Muscle Bulk & Tone: Bulk Unremarkable and Tone Unremarkable
Pronator Drift: No Drift in Upper Extremities
Touch Sensation: Unremarkable
Coordination: [id number] Testing Unremarkable
Data Reviewed
-
Labs: Report Reviewed
Reviewed with: Nurse Practioner and Patient
Old Records: Summarized
[2023-07-13] MEDS: ROCEPHIN 2000 MG IV ×2 (11:12→23:04)
[2023-07-13] MEDS: STERILE WATER FOR INJECTION 20 ML IV ×2 (11:12→23:04)
[2023-07-13] MEDS: PEPCID 20 MG PO (11:13)
[2023-07-13] MEDS: MAXALT MLT (ORALLY DISINTEGRATING) 10 MG PO (11:13)
--- NOTE | 2023-07-13 11:44 | PHA.VAN.FU ---
Vancomycin Assessment / Plan
- Assessment
Renal Function: Stable
WBC's are: WNL
In the past 24 hrs, patient has been: Afebrile
Concomitant Antimicrobials: ceftriaxone
- Dosing Plan
Continue: Vanc 1250mg Q8H
- Monitoring Plan
No level(s) ordered at this time: will hold off on levels for now to give patient time to accumulate with BMI
- Follow Up
Pharmacy will continue to follow.
Vancomycin Follow UP
- -
Patient Age: 47
Patient Sex: Male
Vancomycin Day #: 2
Indication: Bacteremia
Requesting Provider: Dr. Link
Pertinent Antimicrobial Allergies:
sulfonamide antibiotics - unknown
Height / Weight:
Height 6 ft
Actual Weight 146.057 kg
Pertinent Past Medical History: BMI ~44
- Vital Signs / Lab Results
Temp Pulse Resp BP Pulse Ox
98.4 F 79 18 156/95 98
07/13/23 07:20 07/13/23 07:20 07/13/23 07:20 07/13/23 08:00 07/13/23 07:20
Lab Results - Hematology
07/11/23 07/13/23
17:59 07:01
WBC 21.3 H 16.3 H
Lab Results - Chemistry
07/11/23 07/12/23 07/12/23
17:59 07:08 08:50
BUN 12 13 Cancelled
Creatinine 0.8 0.7 Cancelled
Estimated Creat Clear > 125 > 125 Cancelled
Albumin 4.1 3.5 Cancelled
07/13/23
07:01
BUN 15
Creatinine 0.7
Estimated Creat Clear > 125
Albumin 3.8
Microbiology Results
07/11/23 20:05 Blood Culture - Preliminary
Blood/Venous Streptococcus pneumoniae
Gram Stain - Final
07/11/23 19:55 Blood Culture - Preliminary
Blood/Venous Streptococcus pneumoniae
Gram Stain - Final
07/12/23 17:48 Gram Stain - Preliminary
Csf
07/12/23 17:48 Meningitis/Encephalitis Panel (PCR) - Final
Csf
07/12/23 17:48 Fungal Culture - Preliminary
Csf Culture in progress.
Positive cultures are reported as soon as detected.
Final report to follow in four to five weeks.
07/11/23 18:24 Influenza Types A & B (POOL) - Final
Nasal Swab Negative for Influenza A & B, NAAT
Negative results must be combined with clinical observations
and patient history.
Nucleic Acid Amplification test (NAAT)performed on the
[employer] platform.
--- NOTE | 2023-07-13 13:31 | W.PN.ID1 ---
Date of Service
Date of Service: July 13, 2023
Today's Communication
- ceftriaxone dose increased to 2 gm IV q12
- continue vancomycin pending sensitivities on the strep pneumo - pending
- dexamethasone 10 mg IV q6 hrs x4 days
- when blood cultures persistently clear then will place midline
Assessment / Plan
Meningitis
Strep Pneumoniae Bacteremia
Leukocytosis
- CSF consistent with bacterial meningitis; viral panel positive for s pneumo as expected
- repeat blood cultures no growth to date
- Right basilar airspace disease suspicious for pneumonia
- ceftriaxone dose increased to 2 gm IV q12
- continue vancomycin pending sensitivities on the strep pneumo - pending
- dexamethasone 10 mg IV q6 hrs x4 days
- when blood cultures persistently clear then will place midline
- droplet isolation
- follow clinically
Chief Complaint
-: Other (meningitis)
Subjective / Review of Systems
afebrile
bp stable
leukocytosis improved he is on steroids
L shift persists
cr 0.7
CSF consistent with bacterial meningitis as expected
CXR: Right basilar airspace disease suspicious for pneumonia. Findings suspicious for mild congestive change
repeat blood cultures no growth to date
echo: no evidence of endocarditis
less headache, more alert
Vital Signs / Physical Exam
Vital Signs
Vital Signs
Temp Pulse Resp BP Pulse Ox
98.4 F 79 18 156/95 98
07/13/23 07:20 07/13/23 07:20 07/13/23 07:20 07/13/23 08:00 07/13/23 07:20
Physical Exam
Constitutional: No Acute Distress and Other (still with photophobia)
Cardiovascular: Regular Rate and S1/S2; Negative Murmur or Rub
Pulmonary: Clear and Symmetric; Negative Wheezes or Rales
Gastrointestinal: Soft, Non Tender, Non Distended and Normal Bowel Sounds
Skin: Warm and Dry; Negative Rash or Jaundice
Objective Data
Lab Data
Lab Results
07/13/23 07:01
07/13/23 07:01
PT 14.3 Sec (11.4-14.6) 07/11/23 17:59
INR 1.13 07/11/23 17:59
APTT 24.6 Sec (23.4-35.0) 07/11/23 17:59
Estimated Creat Clear > 125 ml/min 07/13/23 07:01
Total Bilirubin 0.6 mg/dl (0.2-1.3) 07/13/23 07:01
AST 29 U/L (17-59) 07/13/23 07:01
ALT 47 U/L (0-50) 07/13/23 07:01
Alkaline Phosphatase 67 U/L (38-126) 07/13/23 07:01
Most recent labs reviewed.
Micro Results:
07/12/23 12:55 Blood Culture - Preliminary
Blood/Venous No Growth in 24 hours- Final report to follow
07/12/23 12:30 Blood Culture - Preliminary
Blood/Venous No Growth in 24 hours- Final report to follow
07/12/23 17:48 CSF Culture - Preliminary
Csf No Growth After 18-24 Hours
Gram Stain - Preliminary
07/11/23 20:05 Blood Culture - Preliminary
Blood/Venous Streptococcus pneumoniae
Gram Stain - Final
07/11/23 19:55 Blood Culture - Preliminary
Blood/Venous Streptococcus pneumoniae
Gram Stain - Final
07/13/23 07:01 Blood Culture - Pending
Blood/Venous
07/12/23 17:48 Meningitis/Encephalitis Panel (PCR) - Final
Csf
07/12/23 17:48 Fungal Culture - Preliminary
Csf Culture in progress.
Positive cultures are reported as soon as detected.
Final report to follow in four to five weeks.
07/12/23 17:48 Acid Fast Bacilli Smear - Pending
Csf Acid Fast Bacilli Culture - Pending
07/11/23 18:24 Influenza Types A & B (POOL) - Final
Nasal Swab Negative for Influenza A & B, NAAT
Negative results must be combined with clinical observations
and patient history.
Nucleic Acid Amplification test (NAAT)performed on the
[employer] platform.
--- NOTE | 2023-07-13 15:04 | CM ---
Addendum entered by Sary Maldonado 07/13/23 16:14:
Patient will need IV anbx.
Noted to be self pay.
[employer] notified.
Tanvi left her number with nursing for patient to call if he does not have insurance.
Nursing to check with patient re insurance.
CM will cont to f/u for medication costs after insurance information available or if patient is private pay.
Original Note:
Dx meningitis
IV anbx and steroids.
Plan: home no needs when stable.
[2023-07-13 15:33] VITALS: BP 196/107
[2023-07-13 16:20] VITALS: BP 191/106
--- NOTE | 2023-07-13 16:20 | PTCARENOTE ---
Pt BP elevated at 191/106. Dr. Link notified via TT, see MAR for orders.
[2023-07-13] MEDS: PROCARDIA XL (EXTENDED RELEASE) 30 MG PO (17:16)
[2023-07-13 17:45] LABS: Osmolality Urine 755 mOsm/kg (300-900)
[2023-07-13 18:16] LABS: Urine Sodium 68 mmol/L (30-90)
[2023-07-13 18:29] VITALS: BP 171/106
[2023-07-13 23:15] VITALS: BP 175/84
[2023-07-14] MEDS: TORADOL 30 MG IV (00:40)
[2023-07-14 00:50] VITALS: BP 176/99
[2023-07-14 01:51] VITALS: BP 156/95
[2023-07-14] MEDS: DECADRON 10 MG IV ×4 (05:33→23:27)
[2023-07-14] MEDS: VANCOCIN 275 MG IV ×2 (05:34→13:33)
[2023-07-14 07:58] VITALS: BP 155/92
[2023-07-14 08:26] LABS: % Basophils 0.1 % (0-2); % Immature Granulocytes 0.6 % (0-0.5); % Lymphocytes 6.9 % (20.5-51.1); % Monocytes 4.7 % (1.7-9.3); % Neutrophils 87.7 % (42.2-75.2); Absolute Immature Granulocytes 0.1 10^3/uL (0-0.05); Absolute Monocytes 0.7 10^3/uL (0.1-0.6); Absolute Neutrophils 12.3 10^3/uL (1.4-6.5); Hematocrit 44.7 % (39.0-52.0); Hemoglobin 15.5 g/dL (13.0-18.0); Mean Corp Hgb Conc. 34.7 g/dL (33.0-37.0); Mean Corpuscular Hgb 30.5 pg (27.0-31.0); Mean Corpuscular Volume 87.8 fL (80.0-94.0); Nucleated Red Blood Cells % 0 % (-); Platelet Count 323 10^3/uL (130-400); Red Blood Cell Count 5.09 10^6/uL (4.70-6.10)
[2023-07-14 09:06] LABS: Blood Urea Nitrogen 23 mg/dl (9-20); Calcium 8.8 mg/dl (8.4-10.2); Carbon Dioxide 20 mmol/L (22-30); Chloride 106 mmol/L (98-107); Estimated Creatinine Clearance > 125 ml/min; Glucose 140 mg/dl (70-99); Potassium 4.3 mmol/L (3.5-5.1); Sodium 132 mmol/L (135-145); eGFR > 60.00
[2023-07-14] MEDS: TYLENOL 1000 MG PO ×3 (09:10→22:13)
[2023-07-14] MEDS: PROCARDIA XL (EXTENDED RELEASE) 30 MG PO (09:10)
[2023-07-14] MEDS: PEPCID 20 MG PO (09:10)
--- NOTE | 2023-07-14 09:26 | W.PN.HOSP.TC ---
Today's Communication/Plan
-
Continue current care
Assessment / Plan
Assessment / Plan
Gen-AAOx3, mild distress due to headache, morbid obesity
HEENT-NC, AT, anicteric, clear oral mm
Neck-supple
CV-reg, no M, +S1/S2
Lungs-clear B/L
Abd-soft, NT, ND
Ext-no edema
Musculoskeletal-no cyanosis, clubbing
Skin-warm and dry
Neuro-grossly non-focal
Psych-calm, cooperative
Sepsis -due to pneumococcal meningitis, pneumococcal bacteremia. Continue antibiotics per infectious disease. Blood cultures positive for Streptococcus pneumonia, repeat cultures negative. Afebrile. Looks nontoxic. WBCs trending down. Midline
catheter to be placed when okay with infectious disease.
Pneumococcal meningitis -continue antibiotics, steroids. Headache improving. Recommend outpatient immunology follow-up given history of frequent ear infections as a child and now presentation with meningitis.
Hyponatremia -(POA) sodium stable at 132. TSH normal. Urine osmolality 755, urine sodium 68. Continue 48 ounce fluid restriction daily.
Hypertensive urgency -patient denies history of hypertension. Suspect undiagnosed essential hypertension. Procardia started, will continue. Outpatient follow-up with PCP recommended. Weight loss recommended. Urgency resolved.
Bilateral hearing loss -patient states he has had chronic hearing loss related to childhood ear infections. Had myringotomy tubes bilaterally. Will need outpatient audiometry evaluation.
Obstructive sleep apnea -on CPAP at bedtime.
Morbid obesity due to excess calories
Full code
Anticipated Discharge: Within 24 hours
Subjective/Interval History
-
Date of Service: July 14, 2023
Patient seen and examined. Still with headache but overall improving in severity. Finished breakfast.
Objective Data
-
Labs:
Laboratory Results
07/14/23
07:40
WBC 14.0 H
Hgb 15.5
Hct 44.7
Plt Count 323 D
Sodium 132 L
Potassium 4.3
Chloride 106
Carbon Dioxide 20 L
BUN 23 H
Creatinine 0.7
Glucose 140 H
Calcium 8.8
Vital Signs:
Vital Signs
Temp Pulse Resp BP Pulse Ox
97.8 F 86 20 155/92 97
07/14/23 07:58 07/14/23 07:58 07/14/23 07:58 07/14/23 07:58 07/14/23 07:58
I&O
07/13/23 07/14/23 07/15/23
06:59 06:59 06:59
Intake Total 2290 / 2290 980 / 980
Balance 2290 / 2290 980 / 980
Review of Systems
-
History Source: Patient
All other systems: Reviewed and negative
--- NOTE | 2023-07-14 09:28 | W.PN.NEURO.1 ---
Today's Communication / Plan
-
-Start 1000 mg TID Tylenol for 6 doses
-Continuing IV steroid
-Continuing antibiotics, following cultures
-Not seeing role for repeated lumbar puncture at this time
-Not recommending further neurologic imaging if he continues to do well
Will follow peripherally
Neuro Assessment/Plan
Assessment
Strep pneumo meningitis, presenting with sudden onset worse headache of life, in retrospect does seem like this was a thunderclap headache.
Positive blood cultures
Clinically doing very well considering bacterial meningitis potential for severity
Subjective/Objective
Subjective Data
Date of Service: July 14, 2023
No acute events overnight, headache still present but improved, not much appetite but trying breakfast, no nausea, mild photophobia present
Objective Data
Vital Signs
Temp Pulse Resp BP Pulse Ox
97.8 F 86 20 155/92 97
07/14/23 07:58 07/14/23 07:58 07/14/23 07:58 07/14/23 07:58 07/14/23 07:58
Lab Results
07/14/23 07:40
07/14/23 07:40
PT 14.3 Sec (11.4-14.6) 07/11/23 17:59
INR 1.13 07/11/23 17:59
APTT 24.6 Sec (23.4-35.0) 07/11/23 17:59
Sodium 132 mmol/L (135-145) L 07/14/23 07:40
Potassium 4.3 mmol/L (3.5-5.1) 07/14/23 07:40
BUN 23 mg/dl (9-20) H 07/14/23 07:40
Glucose 140 mg/dl (70-99) H 07/14/23 07:40
Calcium 8.8 mg/dl (8.4-10.2) 07/14/23 07:40
LDL Cholesterol, Calc 91 mg/dl 07/12/23 07:08
Ur Buprenorphine Negative (Negative) 07/11/23 19:55
Patient Allergies
Sulfa (Sulfonamide Antibiotics) Allergy (Verified 07/11/23 17:40)
Unknown
Physical Exam
-
General: Well Developed and Obese
Eyes: No Ptosis
HEENT: Normocephalic
Neck: No Bruits Bilaterally
Respiratory: Clear to Auscultation
Cardiac: Regular Rhythm
GI: Normal Bowel Sounds
Skin: Unremarkable
Extremities: No Clubbing
Psych: Intact Judgement/Insight; Negative Confused
Extended Neurological Exam
Mood & Affect: Mood Unremarkable and Affect Unremarkable
Attention Span & Concentration: Awake, Alert and Interactive
Memory: Unremarkable
Tremor: Hand Tremor Absent
Involuntary Movement: None
Speech: Quality Unremarkable and Quantity Unremarkable; Negative Expressive Aphasia, Receptive Aphasia or Dysarthric
Cranial Nerve II: Left Eye: Pupillary Reactivity Unremarkable, Pupillary Size Unremarkable and Visual Martinez Intact
Cranial Nerve II: Right Eye: Pupillary Reactivity Unremarkable, Pupillary Size Unremarkable and Visual Martinez Intact
Cranial Nerve V: Facial Sensation: Facial Sensation Unremarkable to Cold
Cranial Nerve VII: Facial Symmetry: Normal Facial Symmetry
Cranial Nerve VIII: Hearing: Unremarkable Hearing to Normal Conversational Volume
Muscle Strength, Overall: Full Throughout
Muscle Bulk & Tone: Bulk Unremarkable
Pronator Drift: No Drift in Upper Extremities
Touch Sensation: Unremarkable
Coordination: [id number] Testing Unremarkable
Data Reviewed
-
CT Head: Report Reviewed and Image Reviewed
--- NOTE | 2023-07-14 09:38 | CM ---
Addendum entered by Sary Maldonado 07/14/23 11:28:
Verified with patient no health insurance.
Tanvi from [facility] in to have medicaid forms signed.
Continue on IV anbx bid.
Will discuss with MD.
Addendum entered by Sary Maldonado 07/14/23 09:47:
TC to [facility], spoke with Malena
Private pay cost for medication and supplies would be approx $197.05/wk plus nursing costs at approx $120/day, they do not draw labs and would need to go to an outpatient lab.
Outpatient infusion center can only be 1x per day.
Original Note:
Left message for Tanvi/[facility] to see if patient has called her back or of they have made contact.
Await TCB
Patient currently with no insurance.
[2023-07-14] MEDS: STERILE WATER FOR INJECTION 20 ML IV ×2 (11:44→23:27)
[2023-07-14] MEDS: ROCEPHIN 2000 MG IV ×2 (11:44→23:27)
[2023-07-14 15:34] LABS: Lyme Antibody Screen, EIA Negative (Negative)
--- NOTE | 2023-07-14 15:49 | PHA.VAN.FU ---
Vancomycin Assessment / Plan
- Assessment
Renal Function: Stable
WBC's are: Trending Up
In the past 24 hrs, patient has been: Afebrile
Concomitant Antimicrobials: ceftriaxone
- Dosing Plan
Continue: Vanc 1250mg Q8H
- Monitoring Plan
Peak Level: 07/15 01:00
Trough Level: 07/15 05:30
Monitoring Comments: levels to be drawn after 8th maintenance dose
- Follow Up
Pharmacy will continue to follow.
Vancomycin Follow UP
- -
Patient Age: 47
Patient Sex: Male
Vancomycin Day #: 3
Indication: Bacteremia
Requesting Provider: Dr. Link
Pertinent Antimicrobial Allergies:
sulfonamide antibiotics - unknown
Height / Weight:
Height 6 ft
Actual Weight 146.057 kg
Pertinent Past Medical History: BMI ~44
- Vital Signs / Lab Results
Temp Pulse Resp BP Pulse Ox
97.8 F 86 20 155/92 97
07/14/23 07:58 07/14/23 07:58 07/14/23 07:58 07/14/23 07:58 07/14/23 07:58
Lab Results - Hematology
07/11/23 07/13/23 07/14/23
17:59 07:01 07:40
WBC 21.3 H 16.3 H 14.0 H
Lab Results - Chemistry
07/11/23 07/12/23 07/12/23
17:59 07:08 08:50
BUN 12 13 Cancelled
Creatinine 0.8 0.7 Cancelled
Estimated Creat Clear > 125 > 125 Cancelled
Albumin 4.1 3.5 Cancelled
07/13/23 07/14/23
07:01 07:40
BUN 15 23 H
Creatinine 0.7 0.7
Estimated Creat Clear > 125 > 125
Albumin 3.8
Microbiology Results
07/12/23 17:48 Acid Fast Bacilli Smear - Preliminary
Csf Acid Fast Bacilli Culture - Preliminary
07/12/23 12:55 Blood Culture - Preliminary
Blood/Venous No Growth in 48 hours- Final report to follow
07/12/23 12:30 Blood Culture - Preliminary
Blood/Venous No Growth in 48 hours- Final report to follow
07/12/23 17:48 CSF Culture - Preliminary
Csf No Growth After 48 Hours
Gram Stain - Preliminary
07/11/23 19:55 Blood Culture - Final
Blood/Venous Streptococcus pneumoniae
Gram Stain - Final
07/11/23 20:05 Blood Culture - Final
Blood/Venous Streptococcus pneumoniae
Gram Stain - Final
07/13/23 07:01 Blood Culture - Preliminary
Blood/Venous No Growth in 24 hours- Final report to follow
07/12/23 17:48 Meningitis/Encephalitis Panel (PCR) - Final
Csf
07/12/23 17:48 Fungal Culture - Preliminary
Csf Culture in progress.
Positive cultures are reported as soon as detected.
Final report to follow in four to five weeks.
[2023-07-14 16:00] VITALS: BP 152/92
--- NOTE | 2023-07-14 16:09 | W.PN.ID1 ---
Date of Service
Date of Service: July 14, 2023
Today's Communication
- ceftriaxone 2 gm IV q12 x10-14 days - final duration pending course
- stop vancomycin
- dexamethasone 10 mg IV q6 hrs x4 days
Assessment / Plan
Meningitis due to S Pneumo
Strep Pneumoniae Bacteremia
Leukocytosis
Class III Obesity
- CSF consistent with bacterial meningitis; viral panel positive for s pneumo as expected
- repeat blood cultures no growth to date
- ceftriaxone 2 gm IV q12 x10-14 days - final duration pending course
- stop vancomycin
- dexamethasone 10 mg IV q6 hrs x4 days
- difficulties arranging outpatient IV therapy, if a safe discharge plan can be arranged then will place midline, patient may need to stay inpatient for the duration of therapy
- droplet isolation can now be discontinued
- follow clinically
Chief Complaint
-: Other (meningitis)
Subjective / Review of Systems
remains afebrile
bp stable
persistent leukocytosis (on steroids)
small improvement in L shift
cr stable
repeat blood cultures no growth to date
Vital Signs / Physical Exam
Vital Signs
Vital Signs
Temp Pulse Resp BP Pulse Ox
97.8 F 86 20 155/92 97
07/14/23 07:58 07/14/23 07:58 07/14/23 07:58 07/14/23 07:58 07/14/23 07:58
Physical Exam
Constitutional: No Acute Distress
Cardiovascular: Regular Rate and S1/S2; Negative Murmur or Rub
Pulmonary: Clear and Symmetric; Negative Wheezes or Rales
Gastrointestinal: Soft, Non Tender, Non Distended and Normal Bowel Sounds
Skin: Warm and Dry; Negative Rash or Jaundice
Objective Data
Lab Data
Lab Results
07/14/23 07:40
07/14/23 07:40
PT 14.3 Sec (11.4-14.6) 07/11/23 17:59
INR 1.13 07/11/23 17:59
APTT 24.6 Sec (23.4-35.0) 07/11/23 17:59
Estimated Creat Clear > 125 ml/min 07/14/23 07:40
Total Bilirubin 0.6 mg/dl (0.2-1.3) 07/13/23 07:01
AST 29 U/L (17-59) 07/13/23 07:01
ALT 47 U/L (0-50) 07/13/23 07:01
Alkaline Phosphatase 67 U/L (38-126) 07/13/23 07:01
Most recent labs reviewed.
Micro Results:
07/12/23 17:48 Acid Fast Bacilli Smear - Preliminary
Csf Acid Fast Bacilli Culture - Preliminary
07/12/23 12:55 Blood Culture - Preliminary
Blood/Venous No Growth in 48 hours- Final report to follow
07/12/23 12:30 Blood Culture - Preliminary
Blood/Venous No Growth in 48 hours- Final report to follow
07/12/23 17:48 CSF Culture - Preliminary
Csf No Growth After 48 Hours
Gram Stain - Preliminary
07/11/23 19:55 Blood Culture - Final
Blood/Venous Streptococcus pneumoniae
Gram Stain - Final
07/11/23 20:05 Blood Culture - Final
Blood/Venous Streptococcus pneumoniae
Gram Stain - Final
07/14/23 07:40 Blood Culture - Pending
Blood/Venous
07/13/23 07:01 Blood Culture - Preliminary
Blood/Venous No Growth in 24 hours- Final report to follow
07/12/23 17:48 Meningitis/Encephalitis Panel (PCR) - Final
Csf
07/12/23 17:48 Fungal Culture - Preliminary
Csf Culture in progress.
Positive cultures are reported as soon as detected.
Final report to follow in four to five weeks.
07/11/23 18:24 Influenza Types A & B (POOL) - Final
Nasal Swab Negative for Influenza A & B, NAAT
Negative results must be combined with clinical observations
and patient history.
Nucleic Acid Amplification test (NAAT)performed on the
[employer] platform.
--- NOTE | 2023-07-14 16:53 | W.PN.UPDATE ---
Update Note
Progress Note Update
Meningitis due to S Pneumo
Strep Pneumoniae Bacteremia
Leukocytosis
Class III Obesity
- CSF consistent with bacterial meningitis; viral panel positive for s pneumo as expected
- repeat blood cultures no growth to date
- ceftriaxone 2 gm IV q12 x10-14 days - final duration pending course
- stop vancomycin
- dexamethasone 10 mg IV q6 hrs x4 days
- difficulties arranging outpatient IV therapy, if a safe discharge plan can be arranged then will place midline, patient may need to stay inpatient for the duration of therapy
- droplet isolation can now be discontinued
- follow clinically
[2023-07-14] MEDS: BENADRYL 25 MG IV (20:01)
[2023-07-14 23:13] VITALS: BP 133/74
[2023-07-15 04:59] LABS: CSF VDRL (T. pallidum) Non Reactive (Non Reactive)
[2023-07-15] MEDS: DECADRON 10 MG IV ×2 (05:36→11:12)
[2023-07-15 08:14] LABS: % Basophils 0.2 % (0-2); % Immature Granulocytes 0.8 % (0-0.5); % Lymphocytes 10.4 % (20.5-51.1); % Monocytes 6.1 % (1.7-9.3); % Neutrophils 82.5 % (42.2-75.2); Absolute Immature Granulocytes 0.1 10^3/uL (0-0.05); Absolute Lymphocytes 1.3 10^3/uL (1.2-3.4); Absolute Monocytes 0.7 10^3/uL (0.1-0.6); Hematocrit 45.6 % (39.0-52.0); Mean Corp Hgb Conc. 35.1 g/dL (33.0-37.0); Mean Corpuscular Hgb 31.3 pg (27.0-31.0); Mean Corpuscular Volume 89.1 fL (80.0-94.0); Nucleated Red Blood Cells % 0 % (-); Platelet Count 344 10^3/uL (130-400); Red Blood Cell Count 5.12 10^6/uL (4.70-6.10); Red Cell Dist. Width 14.3 % (11.5-14.5); White Blood Cell Count 12.1 10^3/uL (4.8-10.8)
[2023-07-15 08:59] LABS: Blood Urea Nitrogen 32 mg/dl (9-20); Carbon Dioxide 22 mmol/L (22-30); Chloride 103 mmol/L (98-107); Estimated Creatinine Clearance > 125 ml/min; Glucose 138 mg/dl (70-99); Potassium 4.2 mmol/L (3.5-5.1); Sodium 136 mmol/L (135-145); eGFR > 60.00
[2023-07-15 09:07] VITALS: BP 178/105
[2023-07-15] MEDS: PROCARDIA XL (EXTENDED RELEASE) 30 MG PO ×2 (09:08→11:11)
[2023-07-15] MEDS: TYLENOL 1000 MG PO ×3 (09:09→21:09)
[2023-07-15] MEDS: PEPCID 20 MG PO (09:09)
--- NOTE | 2023-07-15 09:37 | W.PN.HOSP.TC ---
Addendum entered and electronically signed by Hema Link DO 07/15/23 13:58:
Pneumonia is not a valid diagnosis.
Original Note:
Today's Communication/Plan
-
Continue antibiotics
Increase Procardia dose
ENT consult
Assessment / Plan
Assessment / Plan
Gen-AAOx3, mild distress due to headache, morbid obesity
HEENT-NC, AT, anicteric, clear oral mm, clear fluid draining from left ear
Neck-supple
CV-reg, no M, +S1/S2
Lungs-clear B/L
Abd-soft, NT, ND
Ext-no edema
Musculoskeletal-no cyanosis, clubbing
Skin-warm and dry
Neuro-grossly non-focal
Psych-calm, cooperative
Sepsis -due to pneumococcal meningitis, pneumococcal bacteremia. Continue antibiotics per infectious disease. Blood cultures positive for Streptococcus pneumonia, repeat cultures negative. Afebrile. Looks nontoxic. WBCs trending down. Midline
catheter to be placed when okay with infectious disease. Anticipate 14 days of IV ceftriaxone per infectious disease.
Pneumococcal meningitis -continue antibiotics, steroids. Headache improving. Recommend outpatient immunology follow-up given history of frequent ear infections as a child and now presentation with meningitis.
Left-sided perforated otitis media -consult ENT. Patient states fluid started draining on Tuesday night.
Hyponatremia -(POA) sodium stable at 132. TSH normal. Urine osmolality 755, urine sodium 68. Continue 48 ounce fluid restriction daily.
Hypertensive urgency -patient denies history of hypertension. Suspect undiagnosed essential hypertension. Outpatient follow-up with PCP recommended. Weight loss recommended. Blood pressure elevated this morning, 178/105. Will increase
Procardia XL dose to 60 mg daily.
Bilateral hearing loss -patient states he has had chronic hearing loss related to childhood ear infections. Had myringotomy tubes bilaterally. Will need outpatient audiometry evaluation.
Obstructive sleep apnea -on CPAP at bedtime.
Morbid obesity due to excess calories
Full code
Dispo -patient lacks health insurance. Social work to assist with Medicaid application.
Anticipated Discharge: > 48 hours
Subjective/Interval History
-
Date of Service: July 15, 2023
Patient seen and examined. Complaining of fluid draining from the left ear. 2 out of 10 headache.
Objective Data
-
Labs:
Laboratory Results
07/15/23
07:30
WBC 12.1 H
Hgb 16.0
Hct 45.6
Plt Count 344
Sodium 136
Potassium 4.2
Chloride 103
Carbon Dioxide 22
BUN 32 H
Creatinine 0.7
Glucose 138 H
Calcium 9.0
Vital Signs:
Vital Signs
Temp Pulse Resp BP Pulse Ox
97.5 F 80 18 178/105 97
07/15/23 09:07 07/15/23 09:08 07/15/23 09:07 07/15/23 09:08 07/15/23 09:07
I&O
07/14/23 07/15/23 07/16/23
06:59 06:59 06:59
Intake Total 980 / 980 1140 / 1140
Balance 980 / 980 1140 / 1140
Review of Systems
-
History Source: Patient
All other systems: Reviewed and negative
[2023-07-15] MEDS: STERILE WATER FOR INJECTION 20 ML IV ×2 (11:12→23:15)
[2023-07-15] MEDS: ROCEPHIN 2000 MG IV ×2 (11:12→23:16)
[2023-07-15 11:29] VITALS: BP 162/98
--- NOTE | 2023-07-15 12:52 | W.PN.ID1 ---
Date of Service
Date of Service: July 15, 2023
Today's Communication
- hearing loss may be related to meningitis, ketorolac can also contribute - stopped
- increased dexamethasone to 20 mg IV q6 hrs, planned duration remains 4 days
- add protonix 40 mg - hold famotidine
- will follow up ENT comments
- ceftriaxone 2 gm IV q12 x10 days through (IE if stays in house could leave 07/21 at the earliest)
- difficulties arranging outpatient IV therapy, if a safe discharge plan can be arranged then will place midline, patient may need to stay inpatient for the duration of therapy due to lack of insurance
Assessment / Plan
Meningitis due to S Pneumo
Strep Pneumoniae Bacteremia - cleared
Leukocytosis - on steroids, improving
Class III Obesity
- acute on chronic hearing loss may be related to meningitis, ear effusion, ketorolac can also contribute - stopped
- increased dexamethasone to 20 mg IV q6 hrs, planned duration remains 4 days
- add protonix 40 mg - hold famotidine
- discussed with Dr Austin
- ceftriaxone 2 gm IV q12 x10 days through (IE if stays in house could leave 07/21 at the earliest)
- difficulties arranging outpatient IV therapy, if a safe discharge plan can be arranged then will place midline, patient may need to stay inpatient for the duration of therapy due to lack of insurance
- recommend outpatient follow up with immunology given recurrent ENT infections at a young age
- follow clinically
Chief Complaint
-: Other (meningitis)
Subjective / Review of Systems
afebrile
bp stable
declining leukocytosis (on steroids)
L shift also improving
cr stable
repeat blood cultures no growth to date
reports drainage from the L ear began two nights ago
reports 70% hearing loss due to recurrent ear infections over the last two years - this was before he was admitted
seen by ENT - found to have L OM with perforation - started on ciprodrops
Vital Signs / Physical Exam
Vital Signs
Vital Signs
Temp Pulse Resp BP Pulse Ox
97.5 F 76 18 162/98 97
07/15/23 09:07 07/15/23 11:29 07/15/23 09:07 07/15/23 11:29 07/15/23 09:07
Physical Exam
Constitutional: No Acute Distress and Obese
Head: Other (no otoscope available, but externa e)
Cardiovascular: Regular Rate and S1/S2; Negative Murmur or Rub
Pulmonary: Clear and Symmetric; Negative Wheezes or Rales
Gastrointestinal: Soft, Non Tender, Non Distended and Normal Bowel Sounds
Skin: Warm and Dry; Negative Rash or Jaundice
Objective Data
Lab Data
Lab Results
07/15/23 07:30
07/15/23 07:30
PT 14.3 Sec (11.4-14.6) 07/11/23 17:59
INR 1.13 07/11/23 17:59
APTT 24.6 Sec (23.4-35.0) 07/11/23 17:59
Estimated Creat Clear > 125 ml/min 07/15/23 07:30
Total Bilirubin 0.6 mg/dl (0.2-1.3) 07/13/23 07:01
AST 29 U/L (17-59) 07/13/23 07:01
ALT 47 U/L (0-50) 07/13/23 07:01
Alkaline Phosphatase 67 U/L (38-126) 07/13/23 07:01
Most recent labs reviewed.
Micro Results:
07/12/23 12:30 Blood Culture - Preliminary
Blood/Venous No Growth in 72 hours- Final report to follow
07/12/23 17:48 CSF Culture - Preliminary
Csf No Growth After 72 Hours
Gram Stain - Preliminary
07/14/23 07:40 Blood Culture - Preliminary
Blood/Venous No Growth in 24 hours- Final report to follow
07/13/23 07:01 Blood Culture - Preliminary
Blood/Venous No Growth in 48 hours- Final report to follow
07/12/23 17:48 Acid Fast Bacilli Smear - Preliminary
Csf Acid Fast Bacilli Culture - Preliminary
07/12/23 12:55 Blood Culture - Preliminary
Blood/Venous No Growth in 48 hours- Final report to follow
07/11/23 19:55 Blood Culture - Final
Blood/Venous Streptococcus pneumoniae
Gram Stain - Final
07/11/23 20:05 Blood Culture - Final
Blood/Venous Streptococcus pneumoniae
Gram Stain - Final
07/12/23 17:48 Meningitis/Encephalitis Panel (PCR) - Final
Csf
07/12/23 17:48 Fungal Culture - Preliminary
Csf Culture in progress.
Positive cultures are reported as soon as detected.
Final report to follow in four to five weeks.
07/11/23 18:24 Influenza Types A & B (POOL) - Final
Nasal Swab Negative for Influenza A & B, NAAT
Negative results must be combined with clinical observations
and patient history.
Nucleic Acid Amplification test (NAAT)performed on the
[employer] platform.
--- NOTE | 2023-07-15 13:24 | W.PN.ENT ---
Today's Communication
-
pt seen at bedside
Impression / Plan
-
left acute otitis media with perforation
ordered cipro otic twice a day
follow up in office in 2-4 weeks for follow up
Subjective Data
-
asked to see patient with left ear drum perforation with discharge
patient has long history of ear problems with multiple sets of tubes
Objective Data
-
Vital Signs
Temp Pulse Resp BP Pulse Ox
97.5 F 76 18 162/98 97
07/15/23 09:07 07/15/23 11:29 07/15/23 09:07 07/15/23 11:29 07/15/23 09:07
Intake & Output
07/14/23 07/15/23 07/16/23
06:59 06:59 06:59
Intake:
Oral fluids 480 / 480 1140 / 1140
IV piggybacks 500 / 500
Other:
Number of approximated SMALL 4 4
amounts of urine
Number of approximated MODERATE 3 2
amounts of urine
Lab Results
07/15/23 07:30
07/15/23 07:30
PT 14.3 Sec (11.4-14.6) 07/11/23 17:59
INR 1.13 07/11/23 17:59
APTT 24.6 Sec (23.4-35.0) 07/11/23 17:59
Calcium 9.0 mg/dl (8.4-10.2) 07/15/23 07:30
Total Bilirubin 0.6 mg/dl (0.2-1.3) 07/13/23 07:01
AST 29 U/L (17-59) 07/13/23 07:01
ALT 47 U/L (0-50) 07/13/23 07:01
Alkaline Phosphatase 67 U/L (38-126) 07/13/23 07:01
Triglycerides 58 mg/dl (10-149) 07/12/23 07:08
LDL Cholesterol, Calc 91 mg/dl 07/12/23 07:08
VLDL Cholesterol, Calc 11 mg/dl (0-30) 07/12/23 07:08
HDL Cholesterol 53 mg/dl 07/12/23 07:08
Physical Exam
-
small perforation left ear drum with small amount clear discharge
Chest: Clear
Respiratory: Clear
Data Reviewed
-
Radiology Results: Report Reviewed
--- NOTE | 2023-07-15 13:41 | PN.CDI ---
CDI
- -
CDI:
Physician Documentation Request
Admit Date: 07/11/23 19:45
Dear Doctor Fariba,
07/13 Chest X-Ray Report: 'Right basilar airspace disease suspicious for pneumonia.'
07/13 Infectious Disease PN: 'Right basilar airspace disease suspicious for pneumonia, ceftriaxone dose increased to 2 gm IV q12'
Please indicate in your progress notes if the above diagnosis is valid for this patient:
____ - Pneumonia is a valid diagnosis (Please include it in your progress notes)
____ - Pneumonia is not a valid diagnosis for this patient
____ - Pneumonia is not yet confirmed but remains a suspected condition
____ - Other
Use of terms such as suspected, likely, concern for, or probable are acceptable for a diagnosis that is being evaluated, monitored or treated as if it exists and can be coded in the inpatient setting, when documented at the time of discharge.
Thank you,
Yulisa Morin RN, BSN
CDI Specialist
Available via [place] text
Please use your independent medical judgment in providing your response.
--- NOTE | 2023-07-15 15:25 | CM ---
TC to [facility].
[place] was requesting a 2035 form be filled out for disability if patient was disabled.
They are looking at his income, could be he will not qualify since near the end of the month and he has already received pay checks.
Not sure if he will qualify for MA, may need to look into FA.
ID updated.
Continue IV anbx, follow for d/c needs.
[2023-07-15 16:00] VITALS: BP 132/69
[2023-07-15] MEDS: PROTONIX 40 MG PO (16:14)
--- NOTE | 2023-07-15 16:58 | CON.MD ---
Consultation - Medical
-
This 47-year-old gentlemanHas a long history of ear infections and has had tubes on multiple occasions. His last set of tubes was about 10 years ago. He has noted over the last few years that his hearing has been decreased. He has not been
experiencing ear pain or discharge from the ears. He was admitted with a very severe headache and was found to have meningitis and pneumonia. Over the last couple of days the patient has developed drainage from his left ear which is primarily
clear. He does not have drainage from the right ear. He has not been on drops recently. He has not seen an ENT doctor in [facility] medical history:
Medical problems: Meningitis, sepsis, pneumonia, hearing loss, serous otitis media, acute otitis media, history of sinusitis
Allergies to medications: The patient is allergic to sulfa antibiotics
Medications: Ibuprofen 400 mg p.o. 4 times daily as needed
Hospitalizations: The patient is currently hospitalized for pneumococcal meningitis
Past surgical history: The patient has undergone sinus surgery as well as multiple sets of tubes in his ears
Family history: Asked and is noncontributory for this problem
Review of systems: Positive for decreased hearing: Negative for abdominal pain, negative for chest pain, negative for ear pain positive for discharge from left ear
Physical examination:
Head: Atraumatic and normocephalic
Eyes: Extraocular movements are intact and pupils are equal and reactive to light and accommodation
Ears: Right ear show serous otitis media without infection. Left ear shows acute otitis media with drainage of small perforation of the eardrum. No cholesteatoma seen. No bleeding is seen.
Nose: Swelling and mucopurulent drainage noted, and some crusting noted in the nose
Mouth: No significant infection noted, no suspicious lesions noted
Salivary glands: Normal to palpation
Thyroid gland: Normal to palpation without mass
Neck: Supple without adenopathy
Cranial nerves: 2 through 12 are intact
Voice: Normal tone and volume
Skin: Normal without suspicious lesions
Impression: This patient has a longstanding history of recurrent ear infections and tubes in his ears. He presented with pneumococcal meningitis and pneumonia. He also has evidence of acute otitis media with drainage through a small perforation in
his left eardrum.
Plan: The patient should keep his ear dry except for ciprofloxacin drops 4 drops in the left ear twice a day for 1 week. I would like to see him back in the office in a few weeks to check on his progress. He may benefit from tube placement both in
terms of preventing future infection as well as in terms of improving the hearing. Follow-up in the office in a few weeks.
[2023-07-15 20:25] LABS: Lyme Disease DNA by PCR Not Detected; Lyme Source CSF
[2023-07-15] MEDS: CIPRO 1 DROPPERETT OTIC (21:09)
[2023-07-15 23:57] VITALS: BP 143/92
[2023-07-16] MEDS: DECADRON 20 MG IV ×4 (00:35→18:32)
[2023-07-16] MEDS: BENADRYL 25 MG IV ×2 (03:31→21:28)
[2023-07-16 08:00] VITALS: BP 149/96
--- NOTE | 2023-07-16 08:29 | W.PN.HOSP.TC ---
Today's Communication/Plan
-
Await labs
Continue antibiotics
Assessment / Plan
Assessment / Plan
Gen-AAOx3, mild distress due to headache, morbid obesity
HEENT-NC, AT, anicteric, clear oral mm, clear fluid draining from left ear
Neck-supple
CV-reg, no M, +S1/S2
Lungs-clear B/L
Abd-soft, NT, ND
Ext-no edema
Musculoskeletal-no cyanosis, clubbing
Skin-warm and dry
Neuro-grossly non-focal
Psych-calm, cooperative
Sepsis -due to pneumococcal meningitis, pneumococcal bacteremia. Continue antibiotics per infectious disease. Blood cultures positive for Streptococcus pneumonia, repeat cultures negative. Afebrile. Looks nontoxic. WBCs trending down. Midline
catheter to be placed when okay with infectious disease. Anticipate 14 days of IV ceftriaxone per infectious disease. Patient lacks health insurance, will make it very difficult for discharge.
Acute otitic pneumococcal meningitis -suspect related to acute left ear otitis media. Continue antibiotics, steroids. Headache improving. Recommend outpatient immunology follow-up given history of frequent ear infections as a child and now
presentation with meningitis.
Acute left-sided perforated otitis media -appreciate ENT input. Patient states fluid started draining on Tuesday night. Continue topical Cipro drops to the left ear. Outpatient ENT follow-up.
Hyponatremia -(POA) sodium 136 yesterday, pending for today. TSH normal. Urine osmolality 755, urine sodium 68. Patient requesting removal of fluid restriction. Will do so so long as sodium remains stable.
Hypertensive urgency -patient denies history of hypertension. Suspect undiagnosed essential hypertension. Outpatient follow-up with PCP recommended. Weight loss recommended. Blood pressure elevated this morning, 178/105. Will increase
Procardia XL dose to 60 mg daily.
Chronic bilateral hearing loss -patient states he has had chronic hearing loss related to childhood ear infections. He has not had any recent sudden changes in his hearing loss and I therefore doubt meningitis or acute otitis is contributing to the
hearing loss. Had myringotomy tubes bilaterally. Will need outpatient audiometry evaluation. He states the last time he had myringotomy tubes was 10 to 12 years ago.
Obstructive sleep apnea -on CPAP at bedtime.
Morbid obesity due to excess calories
Full code
Dispo -patient lacks health insurance. Social work to assist with Medicaid application.
Anticipated Discharge: 24 - 48 hours
Subjective/Interval History
-
Date of Service: July 16, 2023
Patient seen and examined. Complaining of dry mouth, requesting fluid restriction to be removed.
Objective Data
-
Labs:
Laboratory Results
07/16/23
08:29
Sodium Pending
Potassium Pending
Chloride Pending
Carbon Dioxide Pending
BUN Pending
Creatinine Pending
Glucose Pending
Calcium Pending
Vital Signs:
Vital Signs
Temp Pulse Resp BP Pulse Ox
97.9 F 64 16 143/92 96
07/15/23 23:57 07/15/23 23:57 07/15/23 23:57 07/15/23 23:57 07/15/23 23:57
I&O
07/15/23 07/16/23 07/17/23
06:59 06:59 06:59
Intake Total 1140 / 1140 240 / 240
Balance 1140 / 1140 240 / 240
Review of Systems
-
History Source: Patient
All other systems: Reviewed and negative
[2023-07-16] MEDS: PROTONIX 40 MG PO (09:10)
[2023-07-16] MEDS: PROCARDIA XL (EXTENDED RELEASE) 60 MG PO (09:10)
[2023-07-16] MEDS: CIPRO 1 DROPPERETT OTIC ×2 (09:10→20:02)
[2023-07-16 09:50] LABS: Blood Urea Nitrogen 28 mg/dl (9-20); Calcium 8.7 mg/dl (8.4-10.2); Carbon Dioxide 24 mmol/L (22-30); Chloride 105 mmol/L (98-107); Estimated Creatinine Clearance > 125 ml/min; Glucose 154 mg/dl (70-99); Potassium 4.4 mmol/L (3.5-5.1); Sodium 134 mmol/L (135-145); eGFR > 60.00
--- NOTE | 2023-07-16 11:07 | W.PN.ID1 ---
Date of Service
Date of Service: July 16, 2023
Today's Communication
- ceftriaxone 2 gm IV q12 x10 days through (IE if stays in house could leave 07/21 at the earliest)
- difficulties arranging outpatient IV therapy, if a safe discharge plan can be arranged then will place midline, patient may need to stay inpatient for the duration of therapy due to lack of insurance
- recommend outpatient follow up with immunology given recurrent ENT infections at a young age
Assessment / Plan
Meningitis due to S Pneumo
Acute otitis media - also suspect s pneumo
Strep Pneumoniae Bacteremia - cleared
Atelectasis - unlikely pneumonia as no pulmonary symptoms
Leukocytosis - on steroids, improving
Class III Obesity
- final day of dexamethasone to 20 mg IV q6 hrs
- add protonix 40 mg - hold famotidine
- ceftriaxone 2 gm IV q12 x10 days through (IE if stays in house could leave 07/21 at the earliest)
- agree with cipro drops
- difficulties arranging outpatient IV therapy, if a safe discharge plan can be arranged then will place midline, patient may need to stay inpatient for the duration of therapy due to lack of insurance
- recommend outpatient follow up with immunology given recurrent ENT infections at a young age
- follow clinically
Chief Complaint
-: Other (meningitis)
Subjective / Review of Systems
afebrile
bp stable
cr stbale
mild hyperglycemia on steroids
tolerating current therapies
hearing unchanged
no photophobia or neck stiffness
Vital Signs / Physical Exam
Vital Signs
Vital Signs
Temp Pulse Resp BP Pulse Ox
98.0 F 66 18 149/96 98
07/16/23 08:00 07/16/23 08:00 07/16/23 08:00 07/16/23 08:00 07/16/23 08:00
Physical Exam
Constitutional: No Acute Distress and Other (no photophobia, supple neck)
Cardiovascular: Regular Rate and S1/S2; Negative Murmur or Rub
Pulmonary: Clear and Symmetric; Negative Wheezes or Rales
Gastrointestinal: Soft, Non Tender, Non Distended and Normal Bowel Sounds
Skin: Warm and Dry; Negative Rash or Jaundice
Objective Data
Lab Data
Lab Results
07/15/23 07:30
07/16/23 09:13
PT 14.3 Sec (11.4-14.6) 07/11/23 17:59
INR 1.13 07/11/23 17:59
APTT 24.6 Sec (23.4-35.0) 07/11/23 17:59
Estimated Creat Clear > 125 ml/min 07/16/23 09:13
Total Bilirubin 0.6 mg/dl (0.2-1.3) 07/13/23 07:01
AST 29 U/L (17-59) 07/13/23 07:01
ALT 47 U/L (0-50) 07/13/23 07:01
Alkaline Phosphatase 67 U/L (38-126) 07/13/23 07:01
Most recent labs reviewed.
Micro Results:
07/14/23 07:40 Blood Culture - Preliminary
Blood/Venous No Growth in 48 hours- Final report to follow
07/13/23 07:01 Blood Culture - Preliminary
Blood/Venous No Growth in 72 hours- Final report to follow
07/12/23 12:55 Blood Culture - Preliminary
Blood/Venous No Growth in 72 hours- Final report to follow
07/12/23 12:30 Blood Culture - Preliminary
Blood/Venous No Growth in 72 hours- Final report to follow
07/12/23 17:48 CSF Culture - Preliminary
Csf No Growth After 72 Hours
Gram Stain - Preliminary
07/12/23 17:48 Acid Fast Bacilli Smear - Preliminary
Csf Acid Fast Bacilli Culture - Preliminary
07/11/23 19:55 Blood Culture - Final
Blood/Venous Streptococcus pneumoniae
Gram Stain - Final
07/11/23 20:05 Blood Culture - Final
Blood/Venous Streptococcus pneumoniae
Gram Stain - Final
07/12/23 17:48 Meningitis/Encephalitis Panel (PCR) - Final
Csf
07/12/23 17:48 Fungal Culture - Preliminary
Csf Culture in progress.
Positive cultures are reported as soon as detected.
Final report to follow in four to five weeks.
07/11/23 18:24 Influenza Types A & B (POOL) - Final
Nasal Swab Negative for Influenza A & B, NAAT
Negative results must be combined with clinical observations
and patient history.
Nucleic Acid Amplification test (NAAT)performed on the
[employer] platform.
[2023-07-16] MEDS: STERILE WATER FOR INJECTION 20 ML IV (13:41)
[2023-07-16] MEDS: ROCEPHIN 2000 MG IV (13:41)
[2023-07-16 15:00] VITALS: BP 137/71
[2023-07-16 23:00] VITALS: BP 166/100
[2023-07-17] MEDS: DECADRON 20 MG IV ×2 (05:53)
[2023-07-17 07:30] VITALS: BP 155/93
[2023-07-17] MEDS: CIPRO 1 DROPPERETT OTIC ×2 (07:48→20:17)
[2023-07-17] MEDS: PROTONIX 40 MG PO (07:51)
[2023-07-17] MEDS: PROCARDIA XL (EXTENDED RELEASE) 60 MG PO (07:51)
--- NOTE | 2023-07-17 09:35 | W.PN.HOSP.TC ---
Today's Communication/Plan
-
Continue antibiotics
Stop steroids
Discharge planning
Assessment / Plan
Assessment / Plan
Gen-AAOx3, mild distress due to headache, morbid obesity
HEENT-NC, AT, anicteric, clear oral mm, clear fluid draining from left ear
Neck-supple
CV-reg, no M, +S1/S2
Lungs-clear B/L
Abd-soft, NT, ND
Ext-no edema
Musculoskeletal-no cyanosis, clubbing
Skin-warm and dry
Neuro-grossly non-focal
Psych-calm, cooperative
Sepsis -due to pneumococcal meningitis, pneumococcal bacteremia. Continue antibiotics per infectious disease. Blood cultures positive for Streptococcus pneumonia, repeat cultures negative. Afebrile. Looks nontoxic. WBCs trending down. Midline
catheter to be placed when okay with infectious disease. Anticipate 14 days of IV ceftriaxone per infectious disease. Patient lacks health insurance, will make it very difficult for discharge.
Acute otitic pneumococcal meningitis -suspect related to acute left ear otitis media. Continue antibiotics, can stop steroids as he has had 5 days. Headache improving. Recommend outpatient immunology follow-up given history of frequent ear
infections as a child and now presentation with meningitis.
Acute left-sided perforated otitis media -appreciate ENT input. Patient states fluid started draining on Tuesday night. Continue topical Cipro drops to the left ear. Outpatient ENT follow-up.
Hyponatremia -(POA) sodium 134 yesterday. TSH normal. Urine osmolality 755, urine sodium 68. Patient requesting removal of fluid restriction. Will lessen severity of fluid restriction.
Hypertensive urgency -patient denies history of hypertension. Suspect undiagnosed essential hypertension. Outpatient follow-up with PCP recommended. Weight loss recommended. Continue Procardia XL.
Chronic bilateral hearing loss -patient states he has had chronic hearing loss related to childhood ear infections. He has not had any recent sudden changes in his hearing loss and I therefore doubt meningitis or acute otitis is contributing to the
hearing loss. Had myringotomy tubes bilaterally. Will need outpatient audiometry evaluation. He states the last time he had myringotomy tubes was 10 to 12 years ago.
Obstructive sleep apnea -on CPAP at bedtime.
Morbid obesity due to excess calories
Full code
Dispo -patient lacks health insurance. Social work to assist with Medicaid application.
Anticipated Discharge: 24 - 48 hours
Subjective/Interval History
-
Date of Service: July 17, 2023
Patient seen and examined. No complaints. Denies headache. Complaining of insomnia.
Objective Data
-
Vital Signs:
Vital Signs
Temp Pulse Resp BP Pulse Ox
97.7 F 60 20 155/93 98
07/17/23 07:30 07/17/23 07:30 07/17/23 07:30 07/17/23 07:30 07/17/23 07:30
I&O
07/16/23 07/17/23 07/18/23
06:59 06:59 06:59
Intake Total 240 / 240 1200 / 1200
Balance 240 / 240 1200 / 1200
Review of Systems
-
History Source: Patient
All other systems: Reviewed and negative
[2023-07-17] MEDS: STERILE WATER FOR INJECTION 20 ML IV ×3 (13:10)
[2023-07-17] MEDS: ROCEPHIN 2000 MG IV ×3 (13:10→23:15)
[2023-07-17 15:30] VITALS: BP 143/85
--- NOTE | 2023-07-17 16:18 | W.PN.ID1 ---
Date of Service
Date of Service: July 17, 2023
Today's Communication
- difficulties arranging outpatient IV therapy, if a safe discharge plan can be arranged then will place midline, patient may need to stay inpatient for the duration of therapy due to lack of insurance
- recommend outpatient follow up with immunology given recurrent ENT infections at a young age
Assessment / Plan
Meningitis due to S Pneumo
Acute otitis media - also suspect s pneumo
Strep Pneumoniae Bacteremia - cleared
Atelectasis - unlikely pneumonia as no pulmonary symptoms
Leukocytosis - on steroids, improving
Class III Obesity
- completed course of dexamethasone - stopped
- ceftriaxone 2 gm IV q12 x10 days through (IE if stays in house could leave 07/21 at the earliest)
- agree with cipro drops
- difficulties arranging outpatient IV therapy, if a safe discharge plan can be arranged then will place midline, patient may need to stay inpatient for the duration of therapy due to lack of insurance
- recommend outpatient follow up with immunology given recurrent ENT infections at a young age
- follow clinically
Chief Complaint
-: Other (meningitis)
Subjective / Review of Systems
afebrile
bp stable
tolerating current therapies
headache 1/10 in intensity
Vital Signs / Physical Exam
Vital Signs
Vital Signs
Temp Pulse Resp BP Pulse Ox
97.7 F 82 20 143/85 98
07/17/23 15:30 07/17/23 15:30 07/17/23 15:30 07/17/23 15:30 07/17/23 15:30
Physical Exam
Constitutional: No Acute Distress
Cardiovascular: Regular Rate and S1/S2; Negative Murmur or Rub
Pulmonary: Clear and Symmetric; Negative Wheezes or Rales
Gastrointestinal: Soft, Non Tender, Non Distended and Normal Bowel Sounds
Skin: Warm and Dry; Negative Rash or Jaundice
Objective Data
Lab Data
Lab Results
07/15/23 07:30
07/16/23 09:13
PT 14.3 Sec (11.4-14.6) 07/11/23 17:59
INR 1.13 07/11/23 17:59
APTT 24.6 Sec (23.4-35.0) 07/11/23 17:59
Estimated Creat Clear > 125 ml/min 07/16/23 09:13
Total Bilirubin 0.6 mg/dl (0.2-1.3) 07/13/23 07:01
AST 29 U/L (17-59) 07/13/23 07:01
ALT 47 U/L (0-50) 07/13/23 07:01
Alkaline Phosphatase 67 U/L (38-126) 07/13/23 07:01
Most recent labs reviewed.
Micro Results:
07/12/23 12:55 Blood Culture - Final
Blood/Venous No Growth - Final Report
07/12/23 12:30 Blood Culture - Final
Blood/Venous No Growth - Final Report
07/12/23 17:48 CSF Culture - Final
Csf No Growth After 5 Days - Final Report
Gram Stain - Final
07/14/23 07:40 Blood Culture - Preliminary
Blood/Venous No Growth in 72 hours- Final report to follow
07/13/23 07:01 Blood Culture - Preliminary
Blood/Venous No Growth in 4 days- Final report to follow
07/12/23 17:48 Acid Fast Bacilli Smear - Preliminary
Csf Acid Fast Bacilli Culture - Preliminary
07/11/23 19:55 Blood Culture - Final
Blood/Venous Streptococcus pneumoniae
Gram Stain - Final
07/11/23 20:05 Blood Culture - Final
Blood/Venous Streptococcus pneumoniae
Gram Stain - Final
07/12/23 17:48 Meningitis/Encephalitis Panel (PCR) - Final
Csf
07/12/23 17:48 Fungal Culture - Preliminary
Csf Culture in progress.
Positive cultures are reported as soon as detected.
Final report to follow in four to five weeks.
07/11/23 18:24 Influenza Types A & B (POOL) - Final
Nasal Swab Negative for Influenza A & B, NAAT
Negative results must be combined with clinical observations
and patient history.
Nucleic Acid Amplification test (NAAT)performed on the
[employer] platform.
[2023-07-17] MEDS: BENADRYL 25 MG IV (20:23)
[2023-07-17 23:30] VITALS: BP 163/92
[2023-07-18 07:00] VITALS: BP 182/98
[2023-07-18] MEDS: CIPRO 1 DROPPERETT OTIC ×2 (07:57→19:55)
[2023-07-18] MEDS: PROTONIX 40 MG PO (07:57)
[2023-07-18] MEDS: PROCARDIA XL (EXTENDED RELEASE) 60 MG PO (07:57)
--- NOTE | 2023-07-18 09:41 | W.PN.HOSP.TC ---
Today's Communication/Plan
-
see bold
Assessment / Plan
Assessment / Plan
Sepsis -due to pneumococcal meningitis, pneumococcal bacteremia. Blood cultures positive for Streptococcus pneumonia, repeat cultures negative. Afebrile. Looks nontoxic. WBCs trending down. Patient does not have insurance. Appreciate ID input,
recommend continuing Rocephin 2 g IV every 12 hours x 10 days through , can be discharged 07/21 at the earliest
Acute otitic pneumococcal meningitis -suspect related to acute left ear otitis media. Continue antibiotics, status post 5 days steroids. Headache improving. Recommend outpatient immunology follow-up given history of frequent ear infections as a
child and now presentation with meningitis.
Acute left-sided perforated otitis media -appreciate ENT input. Patient states fluid started draining on Tuesday night. Continue topical Cipro drops to the left ear. Outpatient ENT follow-up.
Hyponatremia -(POA) sodium 134 today. TSH normal. Urine osmolality 755, urine sodium 68. Patient requesting removal of fluid restriction. Will lessen severity of fluid restriction.
Hypertensive urgency -patient denies history of hypertension. Suspect undiagnosed essential hypertension. Outpatient follow-up with PCP recommended. Weight loss recommended. Continue Procardia XL.
Chronic bilateral hearing loss -patient states he has had chronic hearing loss related to childhood ear infections. He has not had any recent sudden changes in his hearing loss and I therefore doubt meningitis or acute otitis is contributing to the
hearing loss. Had myringotomy tubes bilaterally. Will need outpatient audiometry evaluation. He states the last time he had myringotomy tubes was 10 to 12 years ago.
Obstructive sleep apnea -on CPAP at bedtime.
Morbid obesity due to excess calories
Full code
Dispo -patient lacks health insurance. Social work to assist with Medicaid application.
Physical Exam
General: Obese, no acute distress
HEENT: Normocephalic, Atraumatic, EOMI, MMM
Respiratory: Clear to Auscultation bilaterally
Cardiac: Normal S1/S2, Regular Rate and Rhythm
GI: Soft, Nontender, Nondistended, Normal Bowel Sounds
Extremities: No Clubbing, Cyanosis, or Edema
Neuro: Nonfocal/Grossly Intact
Psych: Calm, Cooperative
Derm: No Visible lesions
Anticipated Discharge: > 48 hours
Subjective/Interval History
-
Date of Service: July 18, 2023
Patient's headache has improved, is 1 out of 10 in intensity. No fever, no nausea, no vomiting.
Objective Data
-
Vital Signs:
Vital Signs
Temp Pulse Resp BP Pulse Ox
97.5 F 61 18 182/98 98
07/18/23 07:00 07/18/23 07:00 07/18/23 07:00 07/18/23 07:00 07/18/23 07:00
I&O
07/17/23 07/18/23 07/19/23
06:59 06:59 06:59
Intake Total 1200 / 1200 1110 / 1110
Balance 1200 / 1200 1110 / 1110
[2023-07-18] MEDS: ROCEPHIN 2000 MG IV ×2 (12:14→19:55)
[2023-07-18] MEDS: STERILE WATER FOR INJECTION 20 ML IV ×2 (12:14→19:55)
[2023-07-18 12:28] VITALS: BP 149/76
[2023-07-18 15:00] VITALS: BP 148/80
--- NOTE | 2023-07-18 16:19 | CM ---
Patient seen bedside, sleeping.
Continues on IV anbx.
TC to [facility], await TCB.
Plan: continue IV anbx.
--- NOTE | 2023-07-18 16:39 | W.PN.ID1 ---
Date of Service
Date of Service: July 18, 2023
Today's Communication
- ceftriaxone 2 gm IV q12 x10 days through (IE if stays in house could leave 07/21 at the earliest)
- agree with cipro drops
- difficulties arranging outpatient IV therapy, if a safe discharge plan can be arranged then will place midline, patient may need to stay inpatient for the duration of therapy due to lack of insurance
- recommend outpatient follow up with immunology given recurrent ENT infections at a young age
Assessment / Plan
Meningitis due to S Pneumo
Acute otitis media - also suspect s pneumo
Strep Pneumoniae Bacteremia - cleared
Atelectasis - unlikely pneumonia as no pulmonary symptoms
Leukocytosis - on steroids, improving
Class III Obesity
- ceftriaxone 2 gm IV q12 x10 days through (IE if stays in house could leave 07/21 at the earliest)
- agree with cipro drops
- difficulties arranging outpatient IV therapy, if a safe discharge plan can be arranged then will place midline, patient may need to stay inpatient for the duration of therapy due to lack of insurance
- recommend outpatient follow up with immunology given recurrent ENT infections at a young age
- follow clinically
Chief Complaint
-: Other (meningitis)
Subjective / Review of Systems
afebrile
bp stable
headache resolved
no new complaints
completing course of rx
Vital Signs / Physical Exam
Vital Signs
Vital Signs
Temp Pulse Resp BP Pulse Ox
97.6 F 74 16 148/80 99
07/18/23 15:00 07/18/23 15:00 07/18/23 15:00 07/18/23 15:00 07/18/23 15:00
Physical Exam
Constitutional: No Acute Distress
Cardiovascular: Regular Rate and S1/S2; Negative Murmur or Rub
Pulmonary: Clear and Symmetric; Negative Wheezes or Rales
Gastrointestinal: Soft, Non Tender, Non Distended and Normal Bowel Sounds
Skin: Warm and Dry; Negative Rash or Jaundice
Objective Data
Lab Data
Lab Results
07/15/23 07:30
07/16/23 09:13
PT 14.3 Sec (11.4-14.6) 07/11/23 17:59
INR 1.13 07/11/23 17:59
APTT 24.6 Sec (23.4-35.0) 07/11/23 17:59
Estimated Creat Clear > 125 ml/min 07/16/23 09:13
Total Bilirubin 0.6 mg/dl (0.2-1.3) 07/13/23 07:01
AST 29 U/L (17-59) 07/13/23 07:01
ALT 47 U/L (0-50) 07/13/23 07:01
Alkaline Phosphatase 67 U/L (38-126) 07/13/23 07:01
Most recent labs reviewed.
Micro Results:
07/12/23 17:48 Fungal Culture - Preliminary
Csf Culture in progress.
Positive cultures are reported as soon as detected.
Final report to follow in four to five weeks.
07/14/23 07:40 Blood Culture - Preliminary
Blood/Venous No Growth in 4 days- Final report to follow
07/13/23 07:01 Blood Culture - Final
Blood/Venous No Growth - Final Report
07/12/23 12:55 Blood Culture - Final
Blood/Venous No Growth - Final Report
07/12/23 12:30 Blood Culture - Final
Blood/Venous No Growth - Final Report
07/12/23 17:48 CSF Culture - Final
Csf No Growth After 5 Days - Final Report
Gram Stain - Final
07/12/23 17:48 Acid Fast Bacilli Smear - Preliminary
Csf Acid Fast Bacilli Culture - Preliminary
07/11/23 19:55 Blood Culture - Final
Blood/Venous Streptococcus pneumoniae
Gram Stain - Final
07/11/23 20:05 Blood Culture - Final
Blood/Venous Streptococcus pneumoniae
Gram Stain - Final
07/12/23 17:48 Meningitis/Encephalitis Panel (PCR) - Final
Csf
07/11/23 18:24 Influenza Types A & B (POOL) - Final
Nasal Swab Negative for Influenza A & B, NAAT
Negative results must be combined with clinical observations
and patient history.
Nucleic Acid Amplification test (NAAT)performed on the
[employer] platform.
[2023-07-18] MEDS: BENADRYL 25 MG IV (19:56)
[2023-07-18 23:00] VITALS: BP 143/84
[2023-07-19 00:06] VITALS: BP 143/84
[2023-07-19 07:00] VITALS: BP 168/93
--- NOTE | 2023-07-19 08:16 | W.PN.HOSP.TC ---
Today's Communication/Plan
-
See bold
Assessment / Plan
Assessment / Plan
Sepsis -due to pneumococcal meningitis, pneumococcal bacteremia. Blood cultures positive for Streptococcus pneumonia, repeat cultures negative. Afebrile. Looks nontoxic. WBCs trending down. Patient does not have insurance. Appreciate ID input,
recommend continuing Rocephin 2 g IV every 12 hours x 10 days through , can be discharged 07/21 at the earliest
Acute otitic pneumococcal meningitis -suspect related to acute left ear otitis media. Continue antibiotics, status post 5 days steroids. Headache improving. Recommend outpatient immunology follow-up given history of frequent ear infections as a
child and now presentation with meningitis.
Acute left-sided perforated otitis media -appreciate ENT input. Patient states fluid started draining on Tuesday night. Continue topical Cipro drops to the left ear. Outpatient ENT follow-up.
Hyponatremia -(POA) sodium 132 today. TSH normal. Urine osmolality 755, urine sodium 68. Patient requesting removal of fluid restriction. Will lessen severity of fluid restriction.
Hypertensive urgency -patient denies history of hypertension. Suspect undiagnosed essential hypertension. Outpatient follow-up with PCP recommended. Weight loss recommended. Continue Procardia XL.
Chronic bilateral hearing loss -patient states he has had chronic hearing loss related to childhood ear infections. He has not had any recent sudden changes in his hearing loss and I therefore doubt meningitis or acute otitis is contributing to the
hearing loss. Had myringotomy tubes bilaterally. Will need outpatient audiometry evaluation. He states the last time he had myringotomy tubes was 10 to 12 years ago.
Obstructive sleep apnea -on CPAP at bedtime.
Morbid obesity due to excess calories
Full code
Dispo -patient lacks health insurance. Social work to assist with Medicaid application.
Physical Exam
General: Obese, no acute distress
HEENT: Normocephalic, Atraumatic, EOMI, MMM
Respiratory: Clear to Auscultation bilaterally
Cardiac: Normal S1/S2, Regular Rate and Rhythm
GI: Soft, Nontender, Nondistended, Normal Bowel Sounds
Extremities: No Clubbing, Cyanosis, or Edema
Neuro: Nonfocal/Grossly Intact
Psych: Calm, Cooperative
Derm: No Visible lesions
Anticipated Discharge: > 48 hours
Subjective/Interval History
-
Date of Service: July 19, 2023
Patient reports headache, 2-10 intensity. No vomiting.
Objective Data
-
Labs:
Laboratory Results
07/19/23
06:54
WBC Pending
Hgb Pending
Hct Pending
Plt Count Pending
Sodium Pending
Potassium Pending
Chloride Pending
Carbon Dioxide Pending
BUN Pending
Creatinine Pending
Glucose Pending
Calcium Pending
Vital Signs:
Vital Signs
Temp Pulse Resp BP Pulse Ox
97.0 F 71 16 168/93 99
07/19/23 07:00 07/19/23 07:00 07/19/23 07:00 07/19/23 07:00 07/19/23 07:00
I&O
07/18/23 07/19/23 07/20/23
06:59 06:59 06:59
Intake Total 1110 / 1110 1200 / 1200
Balance 1110 / 1110 1200 / 1200
[2023-07-19 08:24] LABS: Hematocrit 46.1 % (39.0-52.0); Hemoglobin 16.5 g/dL (13.0-18.0); Mean Corp Hgb Conc. 35.8 g/dL (33.0-37.0); Mean Corpuscular Volume 86.5 fL (80.0-94.0); Mean Platelet Volume 8.8 fL (7.4-10.4); Platelet Count 334 10^3/uL (130-400); Red Blood Cell Count 5.33 10^6/uL (4.70-6.10); Red Cell Dist. Width 14.5 % (11.5-14.5); White Blood Cell Count 12.2 10^3/uL (4.8-10.8)
[2023-07-19 09:04] LABS: Blood Urea Nitrogen 28 mg/dl (9-20); Calcium 8.4 mg/dl (8.4-10.2); Carbon Dioxide 23 mmol/L (22-30); Chloride 104 mmol/L (98-107); Estimated Creatinine Clearance > 125 ml/min; Glucose 69 mg/dl (70-99); Magnesium 2.4 mg/dl (1.6-2.3); Potassium 4.1 mmol/L (3.5-5.1); Sodium 132 mmol/L (135-145); eGFR > 60.00
[2023-07-19] MEDS: PROTONIX 40 MG PO (09:11)
[2023-07-19] MEDS: PROCARDIA XL (EXTENDED RELEASE) 60 MG PO (09:11)
[2023-07-19] MEDS: STERILE WATER FOR INJECTION 20 ML IV ×2 (09:11→19:28)
[2023-07-19] MEDS: CIPRO 1 DROPPERETT OTIC ×2 (09:11→19:27)
[2023-07-19] MEDS: ROCEPHIN 2000 MG IV ×2 (09:11→19:27)
[2023-07-19] MEDS: TYLENOL 650 MG PO ×2 (09:14→19:41)
--- NOTE | 2023-07-19 13:34 | W.PN.ID1 ---
Date of Service
Date of Service: July 19, 2023
Today's Communication
ceftriaxone 2 gm IV q12 x10 days through (IE if stays in house could leave 07/21 at the earliest)
Assessment / Plan
Meningitis due to S Pneumo
Acute otitis media - also suspect s pneumo
Strep Pneumoniae Bacteremia - cleared
Atelectasis - unlikely pneumonia as no pulmonary symptoms
Leukocytosis - on steroids, improving
Class III Obesity
- ceftriaxone 2 gm IV q12 x10 days through (IE if stays in house could leave 07/21 at the earliest)
- agree with cipro drops
- difficulties arranging outpatient IV therapy, if a safe discharge plan can be arranged then will place midline, patient may need to stay inpatient for the duration of therapy due to lack of insurance
- recommend outpatient follow up with immunology given recurrent ENT infections at a young age
- follow clinically
Chief Complaint
-: Other (meningitis)
Subjective / Review of Systems
afebrile
bp stable
minimal leukocytosis
cr stable
blood cultures finalized negative
no complaints
Vital Signs / Physical Exam
Vital Signs
Vital Signs
Temp Pulse Resp BP Pulse Ox
97.0 F 71 16 168/93 99
07/19/23 07:00 07/19/23 09:11 07/19/23 07:00 07/19/23 09:11 07/19/23 07:00
Physical Exam
Constitutional: No Acute Distress
Cardiovascular: Regular Rate and S1/S2; Negative Murmur or Rub
Pulmonary: Clear and Symmetric; Negative Wheezes or Rales
Gastrointestinal: Soft, Non Tender, Non Distended and Normal Bowel Sounds
Skin: Warm and Dry; Negative Rash or Jaundice
Objective Data
Lab Data
Lab Results
07/19/23 06:54
07/19/23 06:54
PT 14.3 Sec (11.4-14.6) 07/11/23 17:59
INR 1.13 07/11/23 17:59
APTT 24.6 Sec (23.4-35.0) 07/11/23 17:59
Estimated Creat Clear > 125 ml/min 07/19/23 06:54
Total Bilirubin 0.6 mg/dl (0.2-1.3) 07/13/23 07:01
AST 29 U/L (17-59) 07/13/23 07:01
ALT 47 U/L (0-50) 07/13/23 07:01
Alkaline Phosphatase 67 U/L (38-126) 07/13/23 07:01
Most recent labs reviewed.
Micro Results:
07/14/23 07:40 Blood Culture - Final
Blood/Venous No Growth - Final Report
07/12/23 17:48 Fungal Culture - Preliminary
Csf Culture in progress.
Positive cultures are reported as soon as detected.
Final report to follow in four to five weeks.
07/13/23 07:01 Blood Culture - Final
Blood/Venous No Growth - Final Report
07/12/23 12:55 Blood Culture - Final
Blood/Venous No Growth - Final Report
07/12/23 12:30 Blood Culture - Final
Blood/Venous No Growth - Final Report
07/12/23 17:48 CSF Culture - Final
Csf No Growth After 5 Days - Final Report
Gram Stain - Final
07/12/23 17:48 Acid Fast Bacilli Smear - Preliminary
Csf Acid Fast Bacilli Culture - Preliminary
07/11/23 19:55 Blood Culture - Final
Blood/Venous Streptococcus pneumoniae
Gram Stain - Final
07/11/23 20:05 Blood Culture - Final
Blood/Venous Streptococcus pneumoniae
Gram Stain - Final
07/12/23 17:48 Meningitis/Encephalitis Panel (PCR) - Final
Csf
07/11/23 18:24 Influenza Types A & B (POOL) - Final
Nasal Swab Negative for Influenza A & B, NAAT
Negative results must be combined with clinical observations
and patient history.
Nucleic Acid Amplification test (NAAT)performed on the
[employer] platform.
[2023-07-19 15:00] VITALS: BP 132/67
--- NOTE | 2023-07-19 15:18 | CM ---
Patient seen bedside.
Continues on IV anbx.
TC to [facility], left VM re progress.
Plan: continue IV anbx.
[2023-07-19 23:27] VITALS: BP 130/72
[2023-07-20 07:30] VITALS: BP 125/69
[2023-07-20 07:44] LABS: Hematocrit 45.9 % (39.0-52.0); Hemoglobin 15.8 g/dL (13.0-18.0); Mean Corp Hgb Conc. 34.4 g/dL (33.0-37.0); Mean Corpuscular Hgb 30.6 pg (27.0-31.0); Mean Corpuscular Volume 88.8 fL (80.0-94.0); Mean Platelet Volume 8.5 fL (7.4-10.4); Platelet Count 308 10^3/uL (130-400); Red Blood Cell Count 5.17 10^6/uL (4.70-6.10); Red Cell Dist. Width 14.1 % (11.5-14.5); White Blood Cell Count 12.6 10^3/uL (4.8-10.8)
--- NOTE | 2023-07-20 08:09 | W.PN.HOSP.TC ---
Today's Communication/Plan
-
See bold
Assessment / Plan
Assessment / Plan
Sepsis -due to pneumococcal meningitis, pneumococcal bacteremia. Blood cultures positive for Streptococcus pneumonia, repeat cultures negative. Afebrile. Looks nontoxic. WBCs trending down. Patient does not have insurance. Appreciate ID input,
recommend continuing Rocephin 2 g IV every 12 hours x 10 days through , can be discharged 07/21 at the earliest
Acute otitic pneumococcal meningitis -suspect related to acute left ear otitis media. Continue antibiotics, status post 5 days steroids. Headache improving. Recommend outpatient immunology follow-up given history of frequent ear infections as a
child and now presentation with meningitis.
Acute left-sided perforated otitis media -appreciate ENT input. Patient states fluid started draining on Tuesday night. Continue topical Cipro drops to the left ear. Outpatient ENT follow-up.
Hyponatremia -(POA) sodium 130 today. TSH normal. Urine osmolality 755, urine sodium 68. Patient requesting removal of fluid restriction. Will lessen severity of fluid restriction. Start Lasix 40 mg daily
Hypertensive urgency -patient denies history of hypertension. Suspect undiagnosed essential hypertension. Outpatient follow-up with PCP recommended. Weight loss recommended. Continue Procardia XL.
Chronic bilateral hearing loss -patient states he has had chronic hearing loss related to childhood ear infections. He has not had any recent sudden changes in his hearing loss and I therefore doubt meningitis or acute otitis is contributing to the
hearing loss. Had myringotomy tubes bilaterally. Will need outpatient audiometry evaluation. He states the last time he had myringotomy tubes was 10 to 12 years ago.
Obstructive sleep apnea -on CPAP at bedtime.
Morbid obesity due to excess calories
Full code
Dispo -patient lacks health insurance. Social work to assist with Medicaid application.
Physical Exam
General: Obese, no acute distress
HEENT: Normocephalic, Atraumatic, EOMI, MMM
Respiratory: Clear to Auscultation bilaterally
Cardiac: Normal S1/S2, Regular Rate and Rhythm
GI: Soft, Nontender, Nondistended, Normal Bowel Sounds
Extremities: No Clubbing, Cyanosis, or Edema
Neuro: Nonfocal/Grossly Intact
Psych: Calm, Cooperative
Derm: No Visible lesions
Anticipated Discharge: 24 - 48 hours
Subjective/Interval History
-
Date of Service: July 20, 2023
Patient reports his headache is 3 out of 10 in intensity. No nausea, no vomiting. No fever.
Objective Data
-
Labs:
Laboratory Results
07/20/23
06:52
WBC Pending
Hgb Pending
Hct Pending
Plt Count Pending
Sodium Pending
Potassium Pending
Chloride Pending
Carbon Dioxide Pending
BUN Pending
Creatinine Pending
Glucose Pending
Calcium Pending
Vital Signs:
Vital Signs
Temp Pulse Resp BP Pulse Ox
98.6 F 69 18 130/72 95
07/19/23 23:27 07/19/23 23:27 07/19/23 23:27 07/19/23 23:27 07/19/23 23:27
I&O
07/19/23 07/20/23 07/21/23
06:59 06:59 06:59
Intake Total 1200 / 1200 1200 / 1200
Balance 1200 / 1200 1200 / 1200
[2023-07-20] MEDS: PROTONIX 40 MG PO (08:33)
[2023-07-20] MEDS: CIPRO 1 DROPPERETT OTIC ×2 (08:33→19:17)
[2023-07-20] MEDS: PROCARDIA XL (EXTENDED RELEASE) 60 MG PO (08:33)
[2023-07-20] MEDS: ROCEPHIN 2000 MG IV ×2 (08:34→19:17)
[2023-07-20] MEDS: STERILE WATER FOR INJECTION 20 ML IV ×2 (08:34→19:16)
[2023-07-20 10:07] LABS: Blood Urea Nitrogen 22 mg/dl (9-20); Calcium 8.4 mg/dl (8.4-10.2); Carbon Dioxide 24 mmol/L (22-30); Chloride 103 mmol/L (98-107); Estimated Creatinine Clearance > 125 ml/min; Glucose 85 mg/dl (70-99); Potassium 4.2 mmol/L (3.5-5.1); Sodium 130 mmol/L (135-145); eGFR > 60.00
[2023-07-20] MEDS: LASIX 40 MG PO (14:12)
--- NOTE | 2023-07-20 15:05 | W.PN.ID1 ---
Date of Service
Date of Service: July 20, 2023
Today's Communication
tomorrow will be final day of antibiotics
Assessment / Plan
Meningitis due to S Pneumo
Acute otitis media - also suspect s pneumo
Strep Pneumoniae Bacteremia - cleared
Atelectasis - unlikely pneumonia as no pulmonary symptoms
Leukocytosis - on steroids, improving
Class III Obesity
- ceftriaxone 2 gm IV q12 x10 days through (IE if stays in house could leave 07/21 at the earliest)
- agree with cipro drops
- difficulties arranging outpatient IV therapy, if a safe discharge plan can be arranged then will place midline, patient may need to stay inpatient for the duration of therapy due to lack of insurance
- recommend outpatient follow up with immunology given recurrent ENT infections at a young age
- follow clinically
Chief Complaint
-: Other (meningitis)
Subjective / Review of Systems
afebrile
bp stable
no complaints
stable leukocytosis cr stable
Vital Signs / Physical Exam
Vital Signs
Vital Signs
Temp Pulse Resp BP Pulse Ox
98.2 F 64 19 125/69 96
07/20/23 07:30 07/20/23 08:33 07/20/23 07:30 07/20/23 08:33 07/20/23 07:30
Physical Exam
Constitutional: No Acute Distress
Cardiovascular: Regular Rate and S1/S2; Negative Murmur or Rub
Pulmonary: Clear and Symmetric; Negative Wheezes or Rales
Gastrointestinal: Soft, Non Tender, Non Distended and Normal Bowel Sounds
Skin: Warm and Dry; Negative Rash or Jaundice
Objective Data
Lab Data
Lab Results
07/20/23 06:52
07/20/23 06:52
PT 14.3 Sec (11.4-14.6) 07/11/23 17:59
INR 1.13 07/11/23 17:59
APTT 24.6 Sec (23.4-35.0) 07/11/23 17:59
Estimated Creat Clear > 125 ml/min 07/20/23 06:52
Total Bilirubin 0.6 mg/dl (0.2-1.3) 07/13/23 07:01
AST 29 U/L (17-59) 07/13/23 07:01
ALT 47 U/L (0-50) 07/13/23 07:01
Alkaline Phosphatase 67 U/L (38-126) 07/13/23 07:01
Most recent labs reviewed.
Micro Results:
07/14/23 07:40 Blood Culture - Final
Blood/Venous No Growth - Final Report
07/12/23 17:48 Fungal Culture - Preliminary
Csf Culture in progress.
Positive cultures are reported as soon as detected.
Final report to follow in four to five weeks.
07/13/23 07:01 Blood Culture - Final
Blood/Venous No Growth - Final Report
07/12/23 12:55 Blood Culture - Final
Blood/Venous No Growth - Final Report
07/12/23 12:30 Blood Culture - Final
Blood/Venous No Growth - Final Report
07/12/23 17:48 CSF Culture - Final
Csf No Growth After 5 Days - Final Report
Gram Stain - Final
07/12/23 17:48 Acid Fast Bacilli Smear - Preliminary
Csf Acid Fast Bacilli Culture - Preliminary
07/11/23 19:55 Blood Culture - Final
Blood/Venous Streptococcus pneumoniae
Gram Stain - Final
07/11/23 20:05 Blood Culture - Final
Blood/Venous Streptococcus pneumoniae
Gram Stain - Final
07/12/23 17:48 Meningitis/Encephalitis Panel (PCR) - Final
Csf
07/11/23 18:24 Influenza Types A & B (POOL) - Final
Nasal Swab Negative for Influenza A & B, NAAT
Negative results must be combined with clinical observations
and patient history.
Nucleic Acid Amplification test (NAAT)performed on the
[employer] NOW platform.
[2023-07-20 15:30] VITALS: BP 135/70
[2023-07-20] MEDS: TYLENOL 650 MG PO ×2 (16:28→22:56)
[2023-07-20 23:00] VITALS: BP 133/80
[2023-07-21 07:30] VITALS: BP 136/65
[2023-07-21] MEDS: TYLENOL 650 MG PO (07:34)
[2023-07-21] MEDS: PROTONIX 40 MG PO (07:34)
[2023-07-21] MEDS: LASIX 40 MG PO (08:38)
[2023-07-21] MEDS: CIPRO 1 DROPPERETT OTIC ×2 (08:39→19:39)
[2023-07-21] MEDS: PROCARDIA XL (EXTENDED RELEASE) 60 MG PO (08:39)
[2023-07-21] MEDS: STERILE WATER FOR INJECTION 20 ML IV ×2 (08:40→19:39)
[2023-07-21] MEDS: ROCEPHIN 2000 MG IV ×2 (08:40→19:39)
[2023-07-21] MEDS: FLUSH (NSS) 1 FLUSH IV (08:43)
--- NOTE | 2023-07-21 09:14 | W.PN.HOSP.TC ---
Today's Communication/Plan
-
Discharge tomorrow
Assessment / Plan
Assessment / Plan
Sepsis -due to pneumococcal meningitis, pneumococcal bacteremia. Blood cultures positive for Streptococcus pneumonia, repeat cultures negative. Afebrile. Looks nontoxic. WBCs trending down. Patient does not have insurance. Appreciate ID input,
recommend continuing Rocephin 2 g IV every 12 hours x 10 days through , can be discharged 07/21 at the earliest
Acute otitic pneumococcal meningitis -suspect related to acute left ear otitis media. Continue antibiotics, status post 5 days steroids. Headache improving. Recommend outpatient immunology follow-up given history of frequent ear infections as a
child and now presentation with meningitis.
Acute left-sided perforated otitis media -appreciate ENT input. Patient states fluid started draining on Tuesday night. Continue topical Cipro drops to the left ear. Outpatient ENT follow-up.
Hyponatremia -(POA) sodium 130 today. TSH normal. Urine osmolality 755, urine sodium 68. Patient requesting removal of fluid restriction. Back to 48 oz fluid restriction. Started Lasix 40 mg daily
Hypertensive urgency -patient denies history of hypertension. Suspect undiagnosed essential hypertension. Outpatient follow-up with PCP recommended. Weight loss recommended. Continue Procardia XL.
Chronic bilateral hearing loss -patient states he has had chronic hearing loss related to childhood ear infections. He has not had any recent sudden changes in his hearing loss and I therefore doubt meningitis or acute otitis is contributing to the
hearing loss. Had myringotomy tubes bilaterally. Will need outpatient audiometry evaluation. He states the last time he had myringotomy tubes was 10 to 12 years ago.
Obstructive sleep apnea -on CPAP at bedtime.
Morbid obesity due to excess calories
Full code
Dispo -patient lacks health insurance. Social work to assist with Medicaid application.
Physical Exam
General: Obese, no acute distress
HEENT: Normocephalic, Atraumatic, EOMI, MMM
Respiratory: Clear to Auscultation bilaterally
Cardiac: Normal S1/S2, Regular Rate and Rhythm
GI: Soft, Nontender, Nondistended, Normal Bowel Sounds
Extremities: No Clubbing, Cyanosis, or Edema
Neuro: Nonfocal/Grossly Intact
Psych: Calm, Cooperative
Derm: No Visible lesions
Anticipated Discharge: Within 24 hours
Subjective/Interval History
-
Date of Service: July 21, 2023
Has mild headache is 3 out of 10 in intensity.� No nausea, no vomiting.� No fever.
Objective Data
-
Labs:
Laboratory Results
07/21/23
06:00
WBC Pending
Hgb Pending
Hct Pending
Plt Count Pending
Sodium Pending
Potassium Pending
Chloride Pending
Carbon Dioxide Pending
BUN Pending
Creatinine Pending
Glucose Pending
Calcium Pending
Vital Signs:
Vital Signs
Temp Pulse Resp BP Pulse Ox
97.6 F 64 18 136/65 98
07/21/23 07:30 07/21/23 07:30 07/21/23 07:30 07/21/23 07:30 07/21/23 07:30
I&O
07/20/23 07/21/23 07/22/23
06:59 06:59 06:59
Intake Total 1200 / 1200 1320 / 1320
Balance 1200 / 1200 1320 / 1320
[2023-07-21 09:34] LABS: Hematocrit 45.4 % (39.0-52.0); Hemoglobin 16.1 g/dL (13.0-18.0); Mean Corp Hgb Conc. 35.5 g/dL (33.0-37.0); Mean Corpuscular Hgb 31.1 pg (27.0-31.0); Mean Corpuscular Volume 87.6 fL (80.0-94.0); Mean Platelet Volume 8.4 fL (7.4-10.4); Platelet Count 260 10^3/uL (130-400); Red Blood Cell Count 5.18 10^6/uL (4.70-6.10); Red Cell Dist. Width 14.1 % (11.5-14.5); White Blood Cell Count 11.1 10^3/uL (4.8-10.8)
[2023-07-21 10:22] LABS: Blood Urea Nitrogen 20 mg/dl (9-20); Calcium 8.5 mg/dl (8.4-10.2); Carbon Dioxide 26 mmol/L (22-30); Chloride 101 mmol/L (98-107); Estimated Creatinine Clearance > 125 ml/min; Glucose 129 mg/dl (70-99); Sodium 130 mmol/L (135-145); eGFR > 60.00
--- NOTE | 2023-07-21 11:26 | CM ---
Patient seen bedside.
Per patient he should be d/c home tomorrow.
Plan: home no needs.
[2023-07-21] MEDS: TYLENOL 1000 MG PO ×2 (13:20→19:58)
--- NOTE | 2023-07-21 14:57 | W.PN.ID1 ---
Date of Service
Date of Service: July 21, 2023
Today's Communication
final day of ceftriaxone, stable for dc after last dose of ceftriaxone this evening
Assessment / Plan
Meningitis due to S Pneumo
Acute otitis media - also suspect s pneumo
Strep Pneumoniae Bacteremia - cleared
Atelectasis - unlikely pneumonia as no pulmonary symptoms
Leukocytosis - on steroids, improving
Class III Obesity
- ceftriaxone 2 gm IV q12 x10 days through (IE if stays in house could leave 07/21 at the earliest)
- agree with cipro drops
- difficulties arranging outpatient IV therapy, if a safe discharge plan can be arranged then will place midline, patient may need to stay inpatient for the duration of therapy due to lack of insurance
- recommend outpatient follow up with immunology given recurrent ENT infections at a young age
- follow clinically
Chief Complaint
-: Other (meningitis)
Subjective / Review of Systems
afebrile
bp stable
mild headache
minimal leukocytosis
cr stable
Vital Signs / Physical Exam
Vital Signs
Vital Signs
Temp Pulse Resp BP Pulse Ox
97.6 F 64 18 136/65 98
07/21/23 07:30 07/21/23 07:30 07/21/23 07:30 07/21/23 07:30 07/21/23 07:30
Physical Exam
Constitutional: No Acute Distress
Cardiovascular: Regular Rate and S1/S2; Negative Murmur or Rub
Pulmonary: Clear and Symmetric; Negative Wheezes or Rales
Gastrointestinal: Soft, Non Tender, Non Distended and Normal Bowel Sounds
Skin: Warm and Dry; Negative Rash or Jaundice
Objective Data
Lab Data
Lab Results
07/21/23 09:19
07/21/23 09:19
PT 14.3 Sec (11.4-14.6) 07/11/23 17:59
INR 1.13 07/11/23 17:59
APTT 24.6 Sec (23.4-35.0) 07/11/23 17:59
Estimated Creat Clear > 125 ml/min 07/21/23 09:19
Total Bilirubin 0.6 mg/dl (0.2-1.3) 07/13/23 07:01
AST 29 U/L (17-59) 07/13/23 07:01
ALT 47 U/L (0-50) 07/13/23 07:01
Alkaline Phosphatase 67 U/L (38-126) 07/13/23 07:01
Most recent labs reviewed.
Micro Results:
07/14/23 07:40 Blood Culture - Final
Blood/Venous No Growth - Final Report
07/12/23 17:48 Fungal Culture - Preliminary
Csf Culture in progress.
Positive cultures are reported as soon as detected.
Final report to follow in four to five weeks.
07/13/23 07:01 Blood Culture - Final
Blood/Venous No Growth - Final Report
07/12/23 12:55 Blood Culture - Final
Blood/Venous No Growth - Final Report
07/12/23 12:30 Blood Culture - Final
Blood/Venous No Growth - Final Report
07/12/23 17:48 CSF Culture - Final
Csf No Growth After 5 Days - Final Report
Gram Stain - Final
07/12/23 17:48 Acid Fast Bacilli Smear - Preliminary
Csf Acid Fast Bacilli Culture - Preliminary
07/11/23 19:55 Blood Culture - Final
Blood/Venous Streptococcus pneumoniae
Gram Stain - Final
07/11/23 20:05 Blood Culture - Final
Blood/Venous Streptococcus pneumoniae
Gram Stain - Final
07/12/23 17:48 Meningitis/Encephalitis Panel (PCR) - Final
Csf
07/11/23 18:24 Influenza Types A & B (POOL) - Final
Nasal Swab Negative for Influenza A & B, NAAT
Negative results must be combined with clinical observations
and patient history.
Nucleic Acid Amplification test (NAAT)performed on the
[employer] NOW platform.
[2023-07-21 15:57] VITALS: BP 143/76
[2023-07-21 23:22] VITALS: BP 159/91
[2023-07-22] MEDS: TYLENOL 1000 MG PO (05:45)
[2023-07-22 08:07] VITALS: BP 132/70
[2023-07-22] MEDS: STERILE WATER FOR INJECTION IV (08:08)
[2023-07-22] MEDS: LASIX 40 MG PO (08:09)
[2023-07-22] MEDS: CIPRO 1 DROPPERETT OTIC (08:09)
[2023-07-22] MEDS: PROCARDIA XL (EXTENDED RELEASE) 60 MG PO (08:09)
[2023-07-22] MEDS: PROTONIX 40 MG PO (08:10)
--- NOTE | 2023-07-22 08:39 | W.PN.HOSP.TC ---
Today's Communication/Plan
-
Discharge today
Assessment / Plan
Assessment / Plan
Sepsis -due to pneumococcal meningitis, pneumococcal bacteremia. Blood cultures positive for Streptococcus pneumonia, repeat cultures negative. Afebrile. Looks nontoxic. WBCs trending down. Patient does not have insurance. Appreciate ID input,
he has completed a full course of Rocephin 2 g IV every 12 hours x 10 days through . Medically stable for discharge
Acute otitic pneumococcal meningitis -suspect related to acute left ear otitis media. Status post antibiotics, status post 5 days steroids. Headache improving. Follow-up with ENT in the office.
Acute left-sided perforated otitis media -appreciate ENT input. Patient states fluid started draining on Tuesday night. Continue topical Cipro drops to the left ear. Follow-up with ENT in the office.
Hyponatremia -(POA) sodium 130 today. TSH normal. Urine osmolality 755, urine sodium 68. Patient requesting removal of fluid restriction. Back to 48 oz fluid restriction. Counseled patient to continue fluid restriction upon discharge.
Hypertensive urgency -patient denies history of hypertension. Suspect undiagnosed essential hypertension. Outpatient follow-up with PCP recommended. Weight loss recommended. Continue Procardia XL. Prescription provided upon discharge.
Chronic bilateral hearing loss -patient states he has had chronic hearing loss related to childhood ear infections. He has not had any recent sudden changes in his hearing loss and I therefore doubt meningitis or acute otitis is contributing to the
hearing loss. Had myringotomy tubes bilaterally. Will need outpatient audiometry evaluation. He states the last time he had myringotomy tubes was 10 to 12 years ago.
Obstructive sleep apnea -on CPAP at bedtime.
Morbid obesity due to excess calories
Full code
Dispo -patient lacks health insurance. Social work to assist with Medicaid application.
Physical Exam
General: Obese, no acute distress
HEENT: Normocephalic, Atraumatic, EOMI, MMM
Respiratory: Clear to Auscultation bilaterally
Cardiac: Normal S1/S2, Regular Rate and Rhythm
GI: Soft, Nontender, Nondistended, Normal Bowel Sounds
Extremities: No Clubbing, Cyanosis, or Edema
Neuro: Nonfocal/Grossly Intact
Psych: Calm, Cooperative
Derm: No Visible lesions
Anticipated Discharge: Today
Subjective/Interval History
-
Date of Service: July 22, 2023
Patient reports a mild headache. No fever. No chest pain, shortness of breath, or palpitations. He is eager for discharge today.
Objective Data
-
Vital Signs:
Vital Signs
Temp Pulse Resp BP Pulse Ox
98.4 F 77 16 132/70 96
07/22/23 08:07 07/22/23 08:07 07/22/23 08:07 07/22/23 08:07 07/22/23 08:07
I&O
07/21/23 07/22/23 07/23/23
06:59 06:59 06:59
Intake Total 1320 / 1320 600 / 600
Output Total 280 / 280
Balance 1320 / 1320 320 / 320
--- NOTE | 2023-07-22 08:39 | W.DCSUMMARY ---
Discharge Summary
Discharge Data
Date of Admission: 07/11/23
Date of Discharge: 07/22/23
-
Pending Results: No
Hospital Course
Discharge diagnoses:
Sepsis
Acute otitis streptococcal meningitis
Streptococcal bacteremia
Acute left-sided perforated otitis media
Hyponatremia
Hypertensive urgency
Chronic bilateral hearing loss
Obstructive sleep apnea
Morbid obesity
Consults: ID, ENT, neurology
Procedures: Lumbar puncture
Head CT:
No evidence of acute intracranial abnormality.
Echo:
�Left ventricular ejection fraction is 60-65%, by visual assessment. Normal
�regional wall motion.
�Normal right ventricular size and function.
�Trace tricuspid regurgitation. Estimated pulmonary artery pressure of 25-30
�mmHg.
�Mildly dilated Sinus of Valsalva (4.0 cm).
Hospital course:
47-year-old male with a past medical history of recurrent otitis media, chronic bilateral hearing loss, and morbid obesity presented with a headache. Patient was seen in conjunction with neurology and ID. Blood cultures grew out streptococcal
pneumoniae. He had an LP which confirmed streptococcal meningitis. He was treated with IV Rocephin. Repeat blood cultures were negative.
Patient also had acute perforated left-sided otitis media. He was seen in conjunction with ENT, and treated with ciprofloxacin otic drops.
Patient was noted to be hypertensive in the hospital. He is not on any blood pressure medications at home. He was started on nifedipine 60 mg daily. His blood pressure improved.
Patient also had hyponatremia, sodium was as low as 130. TSH and morning cortisol were normal. He was treated with a fluid restriction, and his sodium remained stable at 130 in the day of discharge. He was instructed to adhere to fluid
restriction upon discharge.
Patient does not have insurance. He completed his 10-day course of IV Rocephin while in the hospital. He will be discharged on ciprofloxacin otic drops, and needs to follow-up with ENT in the office in 2-3 weeks.
Patient is medically stable for discharge. He needs to follow-up with his primary care doctor in 1 week. He needs to have a repeat BMP at that time to check his sodium. He also needs to follow-up with audiometry for outpatient ABR for his chronic
bilateral hearing loss.
Disposition: Home self-care
Discharge planning required 36 minutes
Discharge Plan
-
Patient Disposition: Home (Routine Discharge)
Discharge Diagnosis/Procedures: Streptococcus pneumoniae meningitis, bacteremia, acute otitis media, hyponatremia, hypertension, obesity
Condition: Good
Diet: Low Fat, Low Cholesterol and Restrict fluids to 48 oz
Activity: As tolerated
Driving Restrictions: As prior to admission
Blood Work: BMP with your primary care doctor in 1 week
Activity Restrictions/Additional Instructions:
Your sodium is low. Recommend continued 48 ounce fluid restriction to prevent it from going lower.
Your sodium on the day of discharge is 130. Normal is 135.
Please follow-up with your primary care doctor in 1 week for repeat sodium check.
Referrals:
Tay Morataya MD [Family Provider] - in one week
Prescriptions:
New
nifedipine 60 mg Tablet Extended Release
60 mg PO DAILY Qty: 30 0RF
ciprofloxacin HCl 0.2 % dropperette
5 drp otic (ear) Q12H 14 Days Qty: 28 0RF
Continued
ibuprofen [Advil] 200 mg Tablet
400 mg PO QIDPRN PRN (Reason: mild pain)
Discharge Orders:
Discharge Patient (As Directed); Ordered 07/22/23
Ordered By: Cecilio Durant
Discharge Date and Time
Discharge Date/Time: 07/22/23 09:47
== END 2023-07-22 09:47 | disposition home or self-care (01) | DRG 871 ==
LOC: 4 WEST ACU 19:45
PROVIDERS: Clinical Nurse Specialist Family Health; Hospitalist; Radiology Vascular & Interventional Radiology; ADMITTING PHYSICIAN Internal Medicine; ATTENDING PHYSICIAN Family Medicine; CONSULT PHYSICIAN Otolaryngology Facial Plastic Surgery; EMERGENCY PHYSICIAN Emergency Medicine; FAMILY PHYSICIAN Family Medicine; OTHER PHYSICIAN Psychiatry & Neurology Neurology; OTHER PHYSICIAN Student in an Organized Health Care Education/Training Program
PROC: B01B1ZZ Fluoroscopy of Spinal Cord using Low Osmolar Contrast (ICD-10-PCS; 2023-07-12)
PROC: 009U3ZX Drainage of Spinal Canal, Percutaneous Approach, Diagnostic (ICD-10-PCS; 2023-07-12)
PROC: 5A09357 Assistance with Respiratory Ventilation, Less than 24 Consecutive Hours, Continuous Positive Airway Pressure (ICD-10-PCS; 2023-07-16)
DX: A40.9 Streptococcal sepsis, unspecified (principal); G00.1 Pneumococcal meningitis; G00.2 Streptococcal meningitis; Z68.41 Body mass index [BMI] 40.0-44.9, adult; E87.1 Hypo-osmolality and hyponatremia; J98.11 Atelectasis; E66.01 Morbid (severe) obesity due to excess calories; D72.829 Elevated white blood cell count, unspecified; R45.1 Restlessness and agitation; E03.9 Hypothyroidism, unspecified; H66.015 Acute suppurative otitis media with spontaneous rupture of ear drum, recurrent, left ear; E04.1 Nontoxic single thyroid nodule; E11.9 Type 2 diabetes mellitus without complications; F41.9 Anxiety disorder, unspecified; F90.9 Attention-deficit hyperactivity disorder, unspecified type; H91.93 Unspecified hearing loss, bilateral; H53.149 Visual discomfort, unspecified; I16.0 Hypertensive urgency; I10 Essential (primary) hypertension; G47.33 Obstructive sleep apnea (adult) (pediatric); K76.0 Fatty (change of) liver, not elsewhere classified; Z87.891 Personal history of nicotine dependence; Z11.52 Encounter for screening for COVID-19; Z88.2 Allergy status to sulfonamides; Z59.7 Insufficient social insurance and welfare support
CPT/HCPCS: 62328; 70450; 70496; 70498; 71046; 80048; 80053; 80061; 80306; 82945; 83735; 83935; 84145; 84157; 84300; 84443; 85025; 85027; 85610; 85730; 86592; 86618; 87015; 87040; 87070; 87102; 87116; 87149; 87186; 87205; 87476; 87483; 87502; 87811; 88108; 89051; 93005; 93306; 96374; 96375; 96376; 97162; 97166; 97535; 99291; 99406; Q9967